=== PATIENT | female | born 1935 | race Caucasian/White ===

== ENCOUNTER 2017-01-25 09:35 | Emergency (ER) | payer MEDICARE ==
[~2017-01-25] VITALS: Ht 157.5 cm; Wt 75.0 kg
[~2017-01-25 09:35] MED LIST: 1-ME1LIQ PO; BUME1TAB PO; CLON-352 PO; METO50TA PO
[2017-01-25 09:44] VITALS: BP 193/88; PULSE 61; RESP 17; TEMP 98.3; O2SAT 96
--- NOTE | 2017-01-25 10:15 | RADRPT ---
EXAM DATE/TIME: 01/25/2017 10:05 [place] COMPARISON: No previous studies available for comparison. INDICATIONS : Right shoulder pain for 4 days. No injury. MEDICAL HISTORY : Cerebrovascular disease. Hypertension. SURGICAL HISTORY : Cholecystectomy. Appendectomy. ENCOUNTER: Initial ACUITY: 4 - 6 days PAIN SCORE: 6/10 LOCATION: Right anterior shoulder. FINDINGS: Limited AP and Y. views of the scapula were obtained and demonstrate diffuse osteopenia. There is nor mal alignment with no acute fracture. The soft tissues are unremarkable. The acromioclavicular and gl enohumeral joints are intact. CONCLUSION: Osteopenia with no underlying bony abnormality. Jeronimo Osborne MD on January 25, 2017 at 10:13 Board Certified Radiologist. This report was verified electronically.
[2017-01-25] MEDS ORDERED: b/p med (11:46)
[2017-01-25] MEDS ORDERED: water pill (11:46)
[2017-01-25] MEDS ORDERED: BACL10TA PO (12:06)
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
[2017-01-25] MEDS ORDERED: DEXAMETHASONE SOD PHOS 4 MG/ML VIAL IM ONE (12:15)
[2017-01-25 12:42] VITALS: BP 157/65; PULSE 60; RESP 18; O2SAT 97
== END 2017-01-25 12:55 | disposition home or self-care (01) ==
LOC: PHED 09:35 → PHEFT 12:55
DX: M25.511 Pain in right shoulder (principal); I10 Essential (primary) hypertension; I48.91 Unspecified atrial fibrillation; Z86.73 Personal history of transient ischemic attack (TIA), and cerebral infarction without residual deficits; Z90.49 Acquired absence of other specified parts of digestive tract; Z79.01 Long term (current) use of anticoagulants
CPT/HCPCS: 73030; 96372; 99284; J1100

== ENCOUNTER 2017-04-22 10:14 | Emergency (ER) | payer MEDICARE ==
[~2017-04-22] VITALS: Ht 157.5 cm; Wt 81.1 kg
[~2017-04-22 10:14] MED LIST changes: -1-ME1LIQ PO; +BACL10TA PO; -BUME1TAB PO; -CLON-352 PO; -METO50TA PO; +b/p med; +water pill
[2017-04-22 10:16] VITALS: BP 193/79; PULSE 83; RESP 16; TEMP 97.8; O2SAT 98
[2017-04-22] MEDS ORDERED: CLON0.1T PO (10:38)
[2017-04-22] MEDS ORDERED: VITA1000 PO (10:38)
[2017-04-22] MEDS ORDERED: ASPI-516 CHEW (10:38)
[2017-04-22] MEDS ORDERED: AMLO10TA2 PO (10:38)
[2017-04-22] MEDS ORDERED: BUME1TAB PO (10:38)
[2017-04-22] MEDS ORDERED: METO50TA PO (10:38)
--- NOTE | 2017-04-22 10:49 | PD ---
HPI Chief Complaint: Skin Problem Time Seen by Provider: 10:32 Travel History International Travel<30 days: No Contact w/Intl Traveler<30days: No Traveled to known affect area: No History of Present Illness HPI 81-year-old female presents the emergency department with contusion with laceration to the right middle anterior christine. This occurred 4 days ago. She did it by hitting a large wooden table while walking. Patient states she was concerned as it didn't seem to be healing, so she thought she should get it checked. She denies significant warmth, purulent drainage, or other signs of infection. Pain is about a 6 out of 10 which she attributes to the bruising. She has been changing the dressing twice daily. She has multiple allergies. PFSH Past Medical History Hx Anticoagulant Therapy: Yes (ASA 81MG ) Arthritis: No Asthma: No Atrial Fibrillation: Yes Autoimmune Disease: No Heart Rhythm Problems: Yes (afib ) Cancer: No Cardiac Catheterization: No Cardiovascular Problems: Yes High Cholesterol: Yes Chemotherapy: No Chest Pain: No Congestive Heart Failure: No COPD: No Cerebrovascular Accident: Yes (DECEMBER AT TIMES FORGETFUL) Diabetes: No Diminished Hearing: No Endocrine: No Gastrointestinal Disorders: No GERD: No Genitourinary: No Headaches: No Hiatal Hernia: No Heparin Induced Thrombocytopen: No Hypertension: Yes Immune Disorder: No Implanted Vascular Access Dvce: No Kidney Stones: No Musculoskeletal: No Neurologic: Yes (stroke 2011 with no deficit, just cannot remember some things) Psychiatric: No Reproductive: No Respiratory: No Integumentary: Yes (R CHEEK) Migraines: No Myocardial Infarction: No Radiation Therapy: No Renal Failure: No Seizures: No Sickle Cell Disease: No Sleep Apnea: No Thyroid Disease: No Ulcer: No Influenza Vaccination: Yes ?: Not Menopausal: Yes : 2 Para: 2 Miscarriage: 0 Past Surgical History Abdominal Surgery: Yes (UMBILICAL HERNIA REPAIR, appendectomy) AICD: No Appendectomy: Yes Arteriovenous Shunt: No Cardiac Surgery: No Cholecystectomy: Yes Coronary Artery Bypass Graft: No Ear Surgery: No Endocrine Surgery: No Eye Surgery: No Genitourinary Surgery: No Gynecologic Surgery: No Insulin Pump: No Joint Replacement: Yes (METAL KNEE REPLACEMENT) Neurologic Surgery: No Oral Surgery: No Pacemaker: No Thoracic Surgery: No Tonsillectomy: Yes Other Surgery: Yes Family History Family Myocardial Infarction: No Social History Alcohol Use: No Tobacco Use: No Substance Use: No Allergies-Medications (Allergen,Severity, Reaction): Coded Allergies: Sulfa (Sulfonamide Antibiotics) (Unverified Allergy, Severe, RASH, 04/22/17 ) aspirin (Unverified Allergy, Severe, HIVES, 04/22/17) chocolate flavor (Unverified Allergy, Severe, itching, 04/22/17) codeine (Unverified Allergy, Severe, SHORT OF BREATH/PIMPLES, 04/22/17) gluten (Unverified Allergy, Severe, gi upset, 04/22/17) metronidazole (Unverified Allergy, Severe, gi upset, 04/22/17) wheat (Unverified Allergy, Severe, CANNOT BREATH, 04/22/17) Yeast (Unverified Adverse Reaction, Severe, NAUSEA/VOMITING, 04/22/17) milk (Unverified Adverse Reaction, Intermediate, DIARRHEA, 04/22/17) soy (Unverified Adverse Reaction, Intermediate, ABDOMINAL CRAMPS, 04/22/17) Uncoded Allergies: SHARK (Allergy, Severe, CANNOT BREATH, 11/14/12) NUTS (Adverse Reaction, Intermediate, DIVERTICULITIS, 11/14/12) Reported Meds & Prescriptions Reported Meds & Active Scripts Active Reported Metoprolol Tartrate 50 Mg Tab 50 Mg PO BID Vitamin D-1000 (Cholecalciferol) 1,000 Unit Tab 2,000 Units PO DAILY Clonidine (Clonidine HCl) 0.1 Mg Tab 0.1 Mg PO Q8HR Bumetanide 1 Mg Tab 1 Mg PO DAILY Aspirin 81 Mg Chew 81 Mg CHEW DAILY Amlodipine (Amlodipine Besylate) 10 Mg Tab 10 Mg PO DAILY Review of Systems Except as stated in HPI: all other systems reviewed are Neg General / Constitutional: No: Fever Eyes: No: Visual changes HENT: No: Headaches Cardiovascular: No: Chest Pain or Discomfort Respiratory: No: Shortness of Breath Gastrointestinal: No: Abdominal Pain Genitourinary: No: Dysuria Musculoskeletal: No: Pain Skin: Positive Lesions (see history of present illness.), No Rash Neurologic: No: Weakness Psychiatric: No: Depression Endocrine: No: Polydipsia Hematologic/Lymphatic: No: Easy Bruising Physical Exam Narrative GENERAL: Patient appears nonacute distress. SKIN: Warm and dry. Patient has open 2 cm horizontal laceration to the anterior right christine with 4 cm diameter ecchymosis surrounding it. Bleeding is currently controlled. There is no sign of erythema, warmth, or bacterial infection. HEAD: Atraumatic. Normocephalic. EYES: Pupils equal and round. No scleral icterus. No injection or drainage. ENT: No nasal bleeding or discharge. Mucous membranes pink and moist. Airways patent. NECK: Trachea midline. Supple and nontender. CARDIOVASCULAR: Regular rate and rhythm. RESPIRATORY: No accessory muscle use. Clear to auscultation. Breath sounds equal bilaterally. MUSCULOSKELETAL: Extremities without clubbing, cyanosis, or edema. No obvious deformities. NEUROLOGICAL: Awake and alert. No obvious cranial nerve deficits. Motor grossly within normal limits. Five out of 5 muscle strength in the arms and legs. Normal speech. PSYCHIATRIC: Appropriate mood and affect; insight and judgment normal. Data Data Last Documented VS Vital Signs Date Time Temp Pulse Resp B/P (MAP) Pulse Ox O2 Delivery O2 Flow Rate FiO2 04/22/17 10:16 97.8 83 16 193/79 (117) 98 Orders Orders Ed Discharge Order (04/22/17 10:49) [facility] Medical Decision Making Medical Screen Exam Complete: Yes Emergency Medical Condition: Yes Differential Diagnosis Right christine contusion. Right christine laceration. Wound check. Narrative Course Closure at this time would not be appropriate. The wound appears clean and not infected. Xeroform gauze, Telfa pad, and Patrice dressing is applied. Wound instructions are reviewed. Patient follow with primary care physician as needed. Diagnosis Primary Impression: Laceration of leg not thigh, left Qualified Codes: S81.812A - Laceration without foreign body, left lower leg, initial encounter Referrals: Primary Care Physician Patient Instructions: General Instructions, Laceration Without Closure (ED) Additional Instructions: Closure at this time would not be appropriate. The wound appears clean and not infected. Xeroform gauze, Telfa pad, and Patrice dressing is applied. Wound instructions are reviewed. Patient follow with primary care physician as needed. Med/Other Pt SpecificInfo: No Meds Exist/No RX given, Wound Care Disposition: DISCHARGE HOME Condition: Stable Franky Hernandez Apr 22, 2017 10:49
== END 2017-04-22 11:10 | disposition home or self-care (01) ==
LOC: PHEFT 10:14
DX: S81.812A Laceration without foreign body, left lower leg, initial encounter (principal); I48.91 Unspecified atrial fibrillation; E78.00 Pure hypercholesterolemia, unspecified; I10 Essential (primary) hypertension; W22.03XA Walked into furniture, initial encounter; Z86.73 Personal history of transient ischemic attack (TIA), and cerebral infarction without residual deficits; Z79.82 Long term (current) use of aspirin
CPT/HCPCS: 99282

== ENCOUNTER 2017-04-26 11:05 | Emergency (ER) | payer MEDICARE ==
[~2017-04-26 11:05] MED LIST changes: +AMLO10TA2 PO; +ASPI-516 CHEW; -BACL10TA PO; +BUME1TAB PO; +CLON0.1T PO; +METO50TA PO; +VITA1000 PO; -b/p med; -water pill
[2017-04-26 11:10] VITALS: BP 174/72; PULSE 85; RESP 20; TEMP 97.6; O2SAT 96
--- NOTE | 2017-04-26 11:43 | PD ---
HPI Chief Complaint: Wound/Suture/Staple Re-Check Time Seen by Provider: 11:32 Travel History International Travel<30 days: No Contact w/Intl Traveler<30days: No Traveled to known affect area: No History of Present Illness HPI This patient complains of a wound on her right christine. She was seen here few days ago for it. She came back today because it's not healed yet. She struck it on a table and opened an area and came in to late to suture. PFSH Past Medical History Hx Anticoagulant Therapy: Yes (ASA 81MG ) Arthritis: No Asthma: No Atrial Fibrillation: Yes Autoimmune Disease: No Heart Rhythm Problems: Yes (afib ) Cancer: No Cardiac Catheterization: No Cardiovascular Problems: Yes High Cholesterol: Yes Chemotherapy: No Chest Pain: No Congestive Heart Failure: No COPD: No Cerebrovascular Accident: Yes (DECEMBER AT TIMES FORGETFUL) Diabetes: No Diminished Hearing: No Endocrine: No Gastrointestinal Disorders: No GERD: No Genitourinary: No Headaches: No Hiatal Hernia: No Heparin Induced Thrombocytopen: No Hypertension: Yes Immune Disorder: No Implanted Vascular Access Dvce: No Kidney Stones: No Musculoskeletal: No Neurologic: Yes (stroke 2011 with no deficit, just cannot remember some things) Psychiatric: No Reproductive: No Respiratory: No Integumentary: Yes (R CHEEK) Migraines: No Myocardial Infarction: No Radiation Therapy: No Renal Failure: No Seizures: No Sickle Cell Disease: No Sleep Apnea: No Thyroid Disease: No Ulcer: No Tetanus Vaccination: > 5 Years Influenza Vaccination: No ?: Not Menopausal: Yes : 2 Para: 2 Miscarriage: 0 Past Surgical History Abdominal Surgery: Yes (UMBILICAL HERNIA REPAIR, appendectomy) AICD: No Appendectomy: Yes Arteriovenous Shunt: No Cardiac Surgery: No Cholecystectomy: Yes Coronary Artery Bypass Graft: No Ear Surgery: No Endocrine Surgery: No Eye Surgery: No Genitourinary Surgery: No Gynecologic Surgery: No Insulin Pump: No Joint Replacement: Yes (METAL KNEE REPLACEMENT) Neurologic Surgery: No Oral Surgery: No Pacemaker: No Thoracic Surgery: No Tonsillectomy: Yes Other Surgery: Yes Social History Alcohol Use: No Tobacco Use: No Substance Use: No Allergies-Medications (Allergen,Severity, Reaction): Coded Allergies: Sulfa (Sulfonamide Antibiotics) (Verified Allergy, Severe, RASH, 04/26/17) aspirin (Verified Allergy, Severe, HIVES, 04/26/17) PT STATES SHE IS ABLE TO TAKE 81MG ASA AND DOES DAILY. chocolate flavor (Verified Allergy, Severe, itching, 04/26/17) codeine (Verified Allergy, Severe, SHORT OF BREATH/PIMPLES, 04/26/17) gluten (Verified Allergy, Severe, gi upset, 04/26/17) metronidazole (Verified Allergy, Severe, gi upset, 04/26/17) wheat (Verified Allergy, Severe, CANNOT BREATH, 04/26/17) Yeast (Verified Adverse Reaction, Severe, NAUSEA/VOMITING, 04/26/17) milk (Verified Adverse Reaction, Intermediate, DIARRHEA, 04/26/17) soy (Verified Adverse Reaction, Intermediate, ABDOMINAL CRAMPS, 04/26/17) Uncoded Allergies: SHARK (Allergy, Severe, CANNOT BREATH, 11/14/12) NUTS (Adverse Reaction, Intermediate, DIVERTICULITIS, 11/14/12) Reported Meds & Prescriptions Reported Meds & Active Scripts Active Reported Metoprolol Tartrate 50 Mg Tab 50 Mg PO BID Vitamin D-1000 (Cholecalciferol) 1,000 Unit Tab 2,000 Units PO DAILY Clonidine (Clonidine HCl) 0.1 Mg Tab 0.1 Mg PO Q8HR Bumetanide 1 Mg Tab 1 Mg PO DAILY Aspirin 81 Mg Chew 81 Mg CHEW DAILY Amlodipine (Amlodipine Besylate) 10 Mg Tab 10 Mg PO DAILY Review of Systems General / Constitutional: No: Fever HENT: No: Headaches Cardiovascular: No: Chest Pain or Discomfort Physical Exam Narrative Psych: Normal mood and affect. Normal insight and judgment. SKIN: Focused skin assessment reveals no rash or ulcers. Skin is warm and dry. Palpation shows no induration or nodules. Right leg: There is a open wound in the mid right tibia that healing by secondary intent. There is a surrounding area of ecchymosis and tenderness. No sign of infection Data Data Last Documented VS Vital Signs Date Time Temp Pulse Resp B/P (MAP) Pulse Ox O2 Delivery O2 Flow Rate FiO2 04/26/17 11:10 97.6 85 20 174/72 (106) 96 MDM Medical Decision Making Medical Screen Exam Complete: Yes Emergency Medical Condition: Yes Medical Record Reviewed: Yes Differential Diagnosis Wound check, dehiscence, cellulitis Narrative Course I have reviewed the patient's electronic medical record. Reviewed his visit from a few days ago Discussed again with the patient that it's too late to close this with sutures tightly. We cleaned it and applied a few Steri-Strips just to give it some added strength but it's not closed tightly Wound care discussed This will need to heal and over time and will take a while Diagnosis Primary Impression: Visit for wound check Additional Instructions: The patient was advised to follow up with their physician and return if they worsen. Med/Other Pt SpecificInfo: Other Disposition: 01 DISCHARGE HOME Condition: Stable Jakob Laura MD Apr 26, 2017 11:43
== END 2017-04-26 12:14 | disposition home or self-care (01) ==
LOC: PHED 11:05
DX: S81.801D Unspecified open wound, right lower leg, subsequent encounter (principal); W22.03XD Walked into furniture, subsequent encounter
CPT/HCPCS: 99281

== ENCOUNTER → 2017-09-08 | Day surgery (SDC) | payer MEDICARE ==
[~2017-09-08] VITALS: Ht 180.3 cm; Wt 79.0 kg
[~2017-09-08] MED LIST changes: +ACET-822 PO; +CHLORHEXIDINE GLUCONATE 2 % 1 PACK (2 CLOTHS) TOPICAL PRN; +HYALURONIDASE/LIDOCAINE/BUPIVACAINE 5 ML SYR LEFT EYE ONE; +LACTATED RINGER'S 1000 ML IV PRN; +LIDOCAINE HCL 1% PF 5 ML AMPULE ONE; +METOPROLOL TARTRATE 25 MG TAB PO PRN; +POVIDONE IODINE 5% (ANTISEPSIS KIT) 4 APPLICATIONS EACH NARE PRN; +PROPARACAINE HCL 0.5% OPHT SOLN 15 ML BTL LEFT EYE ONE; +PROPOFOL 200 MG/20 ML AMP ONE; +PROT40TA PO; +SODIUM CHLORID 0.9% 500 ML IV PRN; +TOBRAMYCIN/DEXAMETHASONE OPTH OINT 3.5 GM TUBE ONE
[2017-09-08] MEDS: TROPICAMIDE 1% OPHT SOLN 15 ML BTL LEFT EYE SCH ×4 (08:10→08:25)
[2017-09-08] MEDS: PHENYLEPHRINE HCL 10% OPTH SOLN 5 ML BTL LEFT EYE SCH ×4 (08:10→08:25)
[2017-09-08] MEDS: CYCLOPENTOLATE HCL 1% OPHT SOLN 2 ML BTL LEFT EYE SCH ×4 (08:10→08:25)
[2017-09-08] MEDS: FLURBIPROFEN 0.03% OPHT SOLN 2.5 ML BTL LEFT EYE SCH ×4 (08:10→08:25)
[2017-09-08 08:20] VITALS: PULSE 73
[2017-09-08 08:40] VITALS: PULSE 67
[2017-09-08 09:45] VITALS: TEMP 97.9
[2017-09-08 10:05] VITALS: BP 164/58; PULSE 62; RESP 16; O2SAT 99
--- NOTE | 2017-09-08 10:38 | MP ---
cc: Janes Sena MD DATE OF OPERATION: 09/08/2017 [facility] #[id number] PREOPERATIVE DIAGNOSIS: Visually significant cataract, left eye. POSTOPERATIVE DIAGNOSIS: Visually significant cataract, left eye. OPERATION: Phacoemulsification with posterior chamber lens implantation, left eye. SURGEON: Janes Sena MD ANESTHESIA: Retrobulbar with MAC. COMPLICATIONS: None. PROCEDURE: After informed consent was obtained, the patient was brought into the operative suite and placed on appropriate monitors by the Anesthesia Service. The patient had received a prior retrobulbar injection of local anesthetic by the Anesthesia Service in the holding area. The patient's operative eye was then prepped and draped in the usual sterile fashion. A wire lid speculum was placed. A paracentesis incision was made in the peripheral cornea with a 1 mm zachery keratome. The anterior chamber was filled with viscoelastic. The anterior chamber was then entered through a stepped, clear corneal incision using a sharp 3 mm zachery keratome. A circular tear capsulorrhexis was then made with a bent needle cystitome. Following hydrodissection of the lens nucleus with balanced saline, phaco-emulsification of the nucleus was performed using a modified chopping technique. The remaining cortex was removed with irrigation/aspiration. The prior two procedures were both performed using the handpieces of the [employer] phaco unit. The capsular bag was then filled with viscoelastic. The intraocular lens was then injected into the capsular bag and positioned. The type of intraocular lens and its power can be found elsewhere in this chart. The remaining viscoelastic was then removed from the anterior chamber with the IA handpiece. The anterior chamber was reformed with balanced saline. The wound was then closed securely with stromal hydration. It was found to be watertight to an intraocular pressure of at least 30 mmHg by palpation. A small amount of balanced salt solution was then removed through the paracentesis site and the intraocular pressure at the end of the case was approximately 20 by palpation. All drapes were then removed. TobraDex ointment was then placed in the eye, which was closed beneath a semi-pressure patch dressing. The patient tolerated this procedure well and left the operating room awake and alert. The patient is to follow-up in my office in the morning. PREOPERATIVE DIAGNOSIS:. with the left eye. MD ASHLYN Jack , 10:26 AM , 10:37 AM
== END | disposition home or self-care (01) ==
LOC: PHSDC 07:11 → EDSTATUS 10:30
PROVIDERS: ATTEND Optometrist Occupational Vision
DX: H25.12 Age-related nuclear cataract, left eye (principal)
CPT/HCPCS: 00142; 66984; J7040; V2632

== ENCOUNTER → 2017-10-20 | Day surgery (SDC) | payer MEDICARE ==
[~2017-10-20] VITALS: Ht 154.9 cm; Wt 79.5 kg
[~2017-10-20] MED LIST changes: +EPINEPHrine HCL PF/SF (1:1000) 1 MG/ML AMP I-OCULAR ONE; -HYALURONIDASE/LIDOCAINE/BUPIVACAINE 5 ML SYR LEFT EYE ONE; +HYALURONIDASE/LIDOCAINE/BUPIVACAINE 5 ML SYR RIGHT EYE ONE; -LIDOCAINE HCL 1% PF 5 ML AMPULE ONE; -PROPARACAINE HCL 0.5% OPHT SOLN 15 ML BTL LEFT EYE ONE; +PROPARACAINE HCL 0.5% OPHT SOLN 15 ML BTL RIGHT EYE ONE
[2017-10-20 08:24] VITALS: PULSE 59
[2017-10-20] MEDS: TROPICAMIDE 1% OPHT SOLN 15 ML BTL RIGHT EYE SCH ×4 (08:27→08:42)
[2017-10-20] MEDS: FLURBIPROFEN 0.03% OPHT SOLN 2.5 ML BTL RIGHT EYE SCH ×4 (08:27→08:42)
[2017-10-20] MEDS: CYCLOPENTOLATE HCL 1% OPHT SOLN 2 ML BTL RIGHT EYE SCH ×4 (08:27→08:42)
[2017-10-20] MEDS: PHENYLEPHRINE HCL 10% OPTH SOLN 5 ML BTL RIGHT EYE SCH ×4 (08:27→08:42)
[2017-10-20 08:47] VITALS: PULSE 62
[2017-10-20 09:43] VITALS: TEMP 97.9
[2017-10-20 09:56] VITALS: BP 156/63; PULSE 57; RESP 16; O2SAT 99
--- NOTE | 2017-10-20 11:14 | MP ---
cc: Janes Sena MD DATE OF OPERATION: 10/20/2017 [facility] # [id number] PREOPERATIVE DIAGNOSIS: Visually significant cataract right eye. POSTOPERATIVE DIAGNOSIS: Visually significant cataract right eye. OPERATION: Phacoemulsification with posterior chamber lens implantation, right eye. SURGEON: Janes Sena MD ANESTHESIA: Retrobulbar with MAC. COMPLICATIONS: None. PROCEDURE: After informed consent was obtained, the patient was brought into the operative suite and placed on appropriate monitors by the Anesthesia Service. The patient had received a prior retrobulbar injection of local anesthetic by the Anesthesia Service in the holding area. The patient's operative eye was then prepped and draped in the usual sterile fashion. A wire lid speculum was placed. A paracentesis incision was made in the peripheral cornea with a 1 mm zachery keratome. The anterior chamber was filled with viscoelastic. The anterior chamber was then entered through a stepped, clear corneal incision using a sharp 3 mm zachery keratome. A circular tear capsulorrhexis was then made with a bent needle cystitome. Following hydrodissection of the lens nucleus with balanced saline, phaco-emulsification of the nucleus was performed using a modified chopping technique. The remaining cortex was removed with irrigation/aspiration. The prior two procedures were both performed using the handpieces of the [employer] phaco unit. The capsular bag was then filled with viscoelastic. The intraocular lens was then injected into the capsular bag and positioned. The type of intraocular lens and its power can be found elsewhere in this chart. The remaining viscoelastic was then removed from the anterior chamber with the IA handpiece. The anterior chamber was reformed with balanced saline. The wound was then closed securely with stromal hydration. It was found to be watertight to an intraocular pressure of at least 30 mmHg by palpation. A small amount of balanced salt solution was then removed through the paracentesis site and the intraocular pressure at the end of the case was approximately 20 by palpation. All drapes were then removed. TobraDex ointment was then placed in the eye, which was closed beneath a semi-pressure patch dressing. The patient tolerated this procedure well and left the operating room awake and alert. The patient is to follow-up in my office in the morning. MD HAZEL Jack , 10:26 AM , 11:13 AM
== END | disposition home or self-care (01) ==
LOC: PHSDC 07:14 → EDSTATUS 10:30
PROVIDERS: ATTEND Optometrist Occupational Vision
DX: H25.11 Age-related nuclear cataract, right eye (principal)
CPT/HCPCS: 00142; 66984; J0171; J7040; V2632

== ENCOUNTER 2018-04-20 19:49 | Observation (INO) ==
--- NOTE | 2018-04-20 20:07 | ED ---
HPI General Chief complaint: Stroke Alert Stated complaint: stroke Time Seen by Provider: 04/20/18 19:55 Source: EMS Mode of arrival: EMS Limitations: altered mental status History of Present Illness HPI narrative: 82yo F with HTN and gastritis was brought in as stroke alert. As per EVAC, pt started repeating herself and not acting normal about 1.5 hours ago. Then about half an hour ago, her family went to check on her and found her on the floor and thinks that she rolled off her bed. Fire was there first and called stroke alert because they said she had right facial droop and weakness on her right side. EVAC said she has been altered and moving all extremities. They do not appreciate right facial droop. Pt states her name but is not answer my questions or following commands. No family member here. Related Data Home Medications Medication Instructions Recorded Confirmed amlodipine 10 mg PO DAILY 04/20/18 04/20/18 aspirin [Aspirin Low Dose] 81 mg PO DIRECTED 04/20/18 04/20/18 atorvastatin 20 mg PO DAILY 04/20/18 04/20/18 bumetanide 0.5 mg PO DAILY 04/20/18 04/20/18 clonidine HCl 0.1 mg PO TID 04/20/18 04/20/18 Allergies Allergy/AdvReac Type Severity Reaction Status Date / Time chocolate flavor Allergy Severe itching Verified 04/20/18 19:56 codeine Allergy Severe SHORT OF Verified 04/20/18 19:56 BREATH/PIMPLES gluten Allergy Severe gi upset Verified 04/20/18 19:56 metronidazole Allergy Severe gi upset Verified 04/20/18 19:56 Sulfa (Sulfonamide Allergy Severe RASH Verified 04/20/18 19:56 Antibiotics) wheat Allergy Severe CANNOT Verified 04/20/18 19:56 BREATH aspirin AdvReac Severe "MAKES ME Verified 04/20/18 19:56 SLEEPY" WITH LARGE DOSES Yeast AdvReac Severe NAUSEA/VOMI Verified 04/20/18 19:56 TING milk AdvReac Intermediate DIARRHEA Verified 04/20/18 19:56 soy AdvReac Intermediate ABDOMINAL Verified 04/20/18 19:56 CRAMPS SHARK Allergy Severe CANNOT Uncoded 12/23/07 03:08 BREATH NUTS AdvReac Intermediate DIVERTICULI Uncoded 11/14/12 03:08 TIS Review of Systems ROS Unobtainable ROS Unobtainable: unobtainable due to mental status [facility] Social History Social History Substance History: No History of Abuse Second Hand Smoke Exposure: No Smoking Status: Never smoker How Often Do You Have a Drink Containing Alcohol: Never Recent Travel in [facility] within the Last 8 Weeks: No Recent Out of Country Travel within the Last 8 Weeks: No Exam Narrative Exam Narrative: GENERAL: 82yo F in mild distress. SKIN: Focused skin assessment warm/dry. HEAD: Atraumatic. Normocephalic. EYES: Pt closes her eyelid shut every time I try to open her eyes. ENT: No nasal bleeding or discharge. Mucous membranes pink and moist. NECK: Trachea midline. No JVD. CARDIOVASCULAR: Regular rate and rhythm. No murmur appreciated. RESPIRATORY: No accessory muscle use. Clear to auscultation. Breath sounds equal bilaterally. GASTROINTESTINAL: Abdomen soft, non-tender, nondistended. MUSCULOSKELETAL: No obvious deformities. No clubbing. No cyanosis. No edema. NEUROLOGICAL: Awake and opens eyes spontaneously. GCS 12 [id number]. Course Initial Documented Vital Signs Pulse Oximetry 95 04/20/18 19:50 Last Documented Vital Signs Temperature 98.6 F 04/24/18 08:00 Pulse Rate 76 04/24/18 08:00 Respiratory Rate 17 04/24/18 04:00 Blood Pressure 203/79 H 04/24/18 08:00 Pulse Oximetry 94 L 04/24/18 08:00 Critical Care Time Critical Care Time: Yes Total Critical Care Time: 35 Attestation: Aggregate critical care time was 35 minutes. Time to perform other separately billable procedures was not included in the critical care time. My time did not include minutes spent treating any other patients simultaneously or on activities that did not directly contribute to the patient's treatment. The services I provided to this patient were to treat and/or prevent clinically significant deterioration that could result in: cardiovascular collapse or . I provided critical care services requiring my management, as noted below: Chart data review, documentation time, medication orders and management, vital sign assessments/reviewing monitor data, ordering and reviewing lab tests, ordering and interpreting/reviewing x-rays and diagnostic studies, care of the patient and discussion of the patient with the admitting physicians. Medical Decision Making MDM Narrative Medical decision making narrative: 82yo F was brought in as stroke alert. EVAC said Fire arrived first and they said she had right facial droop and right sided weakness. However, when they arrived, she was moving all extremities but not really following command. Unable to determine sensation, visual acuity and obtain an accurate NIH stroke scale since pt not answering some questions or following commands. Blood glucose was 201. Neurologist Dr. Bolaños evaluated the patient using tele stroke when she returned from CT scan and she is much improved. Currently following commands so he said it could be TIA but no TPA since symptoms rapidly improving. Recommends aspirin and tomorrow, we can obtain MRI. Labs reviewed, no leukocytosis. H/H normal. Mild hypokalemia at 3.4. Troponin negative at 0.03. TSH normal. CT brain showed no bleed or acute intracranial abnormality. 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 CTA head showed no occlusive disease. CTA neck showed no significant occlusive disease within the neck. There is atherosclerosis of the carotid bifurcations. Pt reevaluated at bedside and is now following commands. No drift on all extremities. Sensation intact. CXR showed minimal basilar atelectasis. No effusion or pneumothorax. Cardiomegaly. Pt reevaluated at bedside and is now fully with it and speaking in clear sentences. UA showed negative leukocyte or nitrate. Will admit for TIA work up. Discussed with Dr. Michelle and accepted to his service. Medical Screen Exam Complete: Yes Emergency Medical Condition: Yes Differential Diagnosis Differential Diagnosis: AMS secondary to ICH vs. CVA vs. sepsis vs. delirium vs. dementia Lab Data Result diagrams: 04/21/18 04:40 04/23/18 05:39 Lab Results 04/20/18 04/20/18 04/20/18 Range/Units 19:50 19:50 19:50 CBC w Diff Auto diff final WBC 8.1 (4.0-11.0) th/mm3 RBC 4.30 (4.00-5.30) mil/mm3 Hgb 12.6 (11.6-15.3) gm/dL Hct 37.4 (35.0-46.0) % MCV 86.9 (80.0-100.0) fL MCH 29.3 (27.0-34.0) pg MCHC 33.8 (32.0-36.0) % RDW 13.9 (11.6-17.2) % Plt Count 221 (150-450) th/mm3 MPV 7.8 (7.0-11.0) fL Neut % (Auto) 80.8 H (16.0-70.0) % Lymph % (Auto) 16.1 (9.0-44.0) % [place]itt % (Auto) 2.2 (0.0-8.0) % Eos % (Auto) 0.4 (0.0-4.0) % Baso % (Auto) 0.5 (0.0-2.0) % Neut # (Auto) 6.6 (1.8-7.7) th/mm3 Lymph # (Auto) 1.3 (1.0-4.8) th/mm3 [place] # (Auto) 0.2 (0.0-0.9) th/mm3 Eos # (Auto) 0.0 (0.0-0.4) th/mm3 Baso # (Auto) 0.0 (0.0-0.2) th/mm3 WBC Differential . Differential Comment . PT 10.8 (9.8-11.6) sec INR 1.1 Ratio APTT 21.4 L (23.4-31.7) sec Sodium 138 (136-145) meq/L Potassium 3.4 L (3.5-5.1) meq/L Chloride 103 (98-107) meq/L Carbon Dioxide 22.7 (21.0-32.0) meq/L Anion Gap 12 (5-15) meq/L BUN 14 (7-18) mg/dL Creatinine 1.00 (0.50-1.00) mg/dL Estimated GFR 53 L (>89) mL/min POC Glucose (68-110) mg/dl Random Glucose 192 H (74-106) mg/dL Calcium 8.4 L (8.5-10.1) mg/dL Magnesium (1.5-2.5) mg/dL Ammonia (11-32) mcmol/L Total Creatine Kinase 78 (26-192) U/L Troponin I 0.03 (0.02-0.05) ng/mL Triglycerides (42-150) mg/dL Cholesterol (120-200) mg/dL LDL Cholesterol, Calc (0-99) mg/dL HDL Cholesterol (40.0-60.0) mg/dL Cholesterol/HDL Ratio Ratio TSH (0.358-3.740) uIU/mL Urine Color (Yellw/Straw) Urine Clarity (Clear) Urine pH (5.0-8.5) Ur Specific [place] (1.002-1.035) Urine Protein (Neg-Trace) mg/dL Urine Glucose (UA) (Negative) mg/dL Urine Ketones (Negative) mg/dL Urine Occult Blood (Negative) Urine Nitrate (Negative) Urine Bilirubin (Negative) Urine Urobilinogen (Less than 2) mg/dL Ur Leukocyte Esterase (Negative) Micro UA Comment Ur Microscopic Review Urine Culture Comments Urine Collection Time hours Urine Opiates Screen (Neg) Ur Barbiturates Screen (Neg) Ur Amphetamines Screen (Neg) U Benzodiazepines Scrn (Neg) Urine Cocaine Screen (Neg) U Cannabinoids Screen (Neg) Blood Type Antibody Screen 04/20/18 04/20/18 04/20/18 Range/Units 19:50 19:50 19:58 CBC w Diff WBC (4.0-11.0) th/mm3 RBC (4.00-5.30) mil/mm3 Hgb (11.6-15.3) gm/dL Hct (35.0-46.0) % MCV (80.0-100.0) fL MCH (27.0-34.0) pg MCHC (32.0-36.0) % RDW (11.6-17.2) % Plt Count (150-450) th/mm3 MPV (7.0-11.0) fL Neut % (Auto) (16.0-70.0) % Lymph % (Auto) (9.0-44.0) % Dewitt % (Auto) (0.0-8.0) % Eos % (Auto) (0.0-4.0) % Baso % (Auto) (0.0-2.0) % Neut # (Auto) (1.8-7.7) th/mm3 Lymph # (Auto) (1.0-4.8) th/mm3 [place]itt # (Auto) (0.0-0.9) th/mm3 Eos # (Auto) (0.0-0.4) th/mm3 Baso # (Auto) (0.0-0.2) th/mm3 WBC Differential Differential Comment PT (9.8-11.6) sec INR Ratio APTT (23.4-31.7) sec Sodium (136-145) meq/L Potassium (3.5-5.1) meq/L Chloride (98-107) meq/L Carbon Dioxide (21.0-32.0) meq/L Anion Gap (5-15) meq/L BUN (7-18) mg/dL Creatinine (0.50-1.00) mg/dL Estimated GFR (>89) mL/min POC Glucose 201 H (68-110) mg/dl Random Glucose (74-106) mg/dL Calcium (8.5-10.1) mg/dL Magnesium (1.5-2.5) mg/dL Ammonia (11-32) mcmol/L Total Creatine Kinase (26-192) U/L Troponin I (0.02-0.05) ng/mL Triglycerides (42-150) mg/dL Cholesterol (120-200) mg/dL LDL Cholesterol, Calc (0-99) mg/dL HDL Cholesterol (40.0-60.0) mg/dL Cholesterol/HDL Ratio Ratio TSH 1.980 (0.358-3.740) uIU/mL Urine Color (Yellw/Straw) Urine Clarity (Clear) Urine pH (5.0-8.5) Ur Specific [place] (1.002-1.035) Urine Protein (Neg-Trace) mg/dL Urine Glucose (UA) (Negative) mg/dL Urine Ketones (Negative) mg/dL Urine Occult Blood (Negative) Urine Nitrate (Negative) Urine Bilirubin (Negative) Urine Urobilinogen (Less than 2) mg/dL Ur Leukocyte Esterase (Negative) Micro UA Comment Ur Microscopic Review Urine Culture Comments Urine Collection Time hours Urine Opiates Screen (Neg) Ur Barbiturates Screen (Neg) Ur Amphetamines Screen (Neg) U Benzodiazepines Scrn (Neg) Urine Cocaine Screen (Neg) U Cannabinoids Screen (Neg) Blood Type O Positive Antibody Screen Negative 04/20/18 04/20/18 04/20/18 Range/Units 20:40 20:54 20:54 CBC w Diff WBC (4.0-11.0) th/mm3 RBC (4.00-5.30) mil/mm3 Hgb (11.6-15.3) gm/dL Hct (35.0-46.0) % MCV (80.0-100.0) fL MCH (27.0-34.0) pg MCHC (32.0-36.0) % RDW (11.6-17.2) % Plt Count (150-450) th/mm3 MPV (7.0-11.0) fL Neut % (Auto) (16.0-70.0) % Lymph % (Auto) (9.0-44.0) % Dewitt % (Auto) (0.0-8.0) % Eos % (Auto) (0.0-4.0) % Baso % (Auto) (0.0-2.0) % Neut # (Auto) (1.8-7.7) th/mm3 Lymph # (Auto) (1.0-4.8) th/mm3 Dewitt # (Auto) (0.0-0.9) th/mm3 Eos # (Auto) (0.0-0.4) th/mm3 Baso # (Auto) (0.0-0.2) th/mm3 WBC Differential Differential Comment PT (9.8-11.6) sec INR Ratio APTT (23.4-31.7) sec Sodium (136-145) meq/L Potassium (3.5-5.1) meq/L Chloride (98-107) meq/L Carbon Dioxide (21.0-32.0) meq/L Anion Gap (5-15) meq/L BUN (7-18) mg/dL Creatinine (0.50-1.00) mg/dL Estimated GFR (>89) mL/min POC Glucose (68-110) mg/dl Random Glucose (74-106) mg/dL Calcium (8.5-10.1) mg/dL Magnesium (1.5-2.5) mg/dL Ammonia Less than 10 L (11-32) mcmol/L Total Creatine Kinase (26-192) U/L Troponin I (0.02-0.05) ng/mL Triglycerides (42-150) mg/dL Cholesterol (120-200) mg/dL LDL Cholesterol, Calc (0-99) mg/dL HDL Cholesterol (40.0-60.0) mg/dL Cholesterol/HDL Ratio Ratio TSH (0.358-3.740) uIU/mL Urine Color Yellow (Yellw/Straw) Urine Clarity Clear (Clear) Urine pH 7.0 (5.0-8.5) Ur Specific [place] 1.015 (1.002-1.035) Urine Protein Trace (Neg-Trace) mg/dL Urine Glucose (UA) 500 H (Negative) mg/dL Urine Ketones Trace H (Negative) mg/dL Urine Occult Blood Small H (Negative) Urine Nitrate Negative (Negative) Urine Bilirubin Negative (Negative) Urine Urobilinogen 0.2 (Less than 2) mg/dL Ur Leukocyte Esterase Negative (Negative) Micro UA Comment Culture not ind Ur Microscopic Review Microscopic reviewed Urine Culture Comments Culture not ind Urine Collection Time 2054 hours Urine Opiates Screen Neg (Neg) Ur Barbiturates Screen Neg (Neg) Ur Amphetamines Screen Neg (Neg) U Benzodiazepines Scrn Neg (Neg) Urine Cocaine Screen Neg (Neg) U Cannabinoids Screen Neg (Neg) Blood Type Antibody Screen 04/21/18 04/21/18 04/21/18 Range/Units 01:45 04:40 04:40 CBC w Diff Auto diff final WBC 6.8 (4.0-11.0) th/mm3 RBC 3.94 L (4.00-5.30) mil/mm3 Hgb 11.1 L (11.6-15.3) gm/dL Hct 33.8 L (35.0-46.0) % MCV 85.7 (80.0-100.0) fL MCH 28.1 (27.0-34.0) pg MCHC 32.8 (32.0-36.0) % RDW 14.2 (11.6-17.2) % Plt Count 203 (150-450) th/mm3 MPV 7.9 (7.0-11.0) fL Neut % (Auto) 67.6 (16.0-70.0) % Lymph % (Auto) 22.8 (9.0-44.0) % Dewitt % (Auto) 8.3 H (0.0-8.0) % Eos % (Auto) 0.8 (0.0-4.0) % Baso % (Auto) 0.5 (0.0-2.0) % Neut # (Auto) 4.5 (1.8-7.7) th/mm3 Lymph # (Auto) 1.6 (1.0-4.8) th/mm3 [place] # (Auto) 0.6 (0.0-0.9) th/mm3 Eos # (Auto) 0.1 (0.0-0.4) th/mm3 Baso # (Auto) 0.0 (0.0-0.2) th/mm3 WBC Differential . Differential Comment . PT (9.8-11.6) sec INR Ratio APTT (23.4-31.7) sec Sodium 142 (136-145) meq/L Potassium 3.2 L (3.5-5.1) meq/L Chloride 108 H (98-107) meq/L Carbon Dioxide 26.8 (21.0-32.0) meq/L Anion Gap 7 (5-15) meq/L BUN 10 (7-18) mg/dL Creatinine 0.78 (0.50-1.00) mg/dL Estimated GFR 70 L (>89) mL/min POC Glucose (68-110) mg/dl Random Glucose 89 D (74-106) mg/dL Calcium 7.9 L (8.5-10.1) mg/dL Magnesium (1.5-2.5) mg/dL Ammonia (11-32) mcmol/L Total Creatine Kinase (26-192) U/L Troponin I 0.11 H 0.11 H (0.02-0.05) ng/mL Triglycerides 61 (42-150) mg/dL Cholesterol 152 (120-200) mg/dL LDL Cholesterol, Calc 87 (0-99) mg/dL HDL Cholesterol 53.1 (40.0-60.0) mg/dL Cholesterol/HDL Ratio 2.86 Ratio TSH (0.358-3.740) uIU/mL Urine Color (Yellw/Straw) Urine Clarity (Clear) Urine pH (5.0-8.5) Ur Specific [place] (1.002-1.035) Urine Protein (Neg-Trace) mg/dL Urine Glucose (UA) (Negative) mg/dL Urine Ketones (Negative) mg/dL Urine Occult Blood (Negative) Urine Nitrate (Negative) Urine Bilirubin (Negative) Urine Urobilinogen (Less than 2) mg/dL Ur Leukocyte Esterase (Negative) Micro UA Comment Ur Microscopic Review Urine Culture Comments Urine Collection Time hours Urine Opiates Screen (Neg) Ur Barbiturates Screen (Neg) Ur Amphetamines Screen (Neg) U Benzodiazepines Scrn (Neg) Urine Cocaine Screen (Neg) U Cannabinoids Screen (Neg) Blood Type Antibody Screen 04/21/18 04/22/18 04/23/18 Range/Units 08:37 00:12 05:39 CBC w Diff WBC (4.0-11.0) th/mm3 RBC (4.00-5.30) mil/mm3 Hgb (11.6-15.3) gm/dL Hct (35.0-46.0) % MCV (80.0-100.0) fL MCH (27.0-34.0) pg MCHC (32.0-36.0) % RDW (11.6-17.2) % Plt Count (150-450) th/mm3 MPV (7.0-11.0) fL Neut % (Auto) (16.0-70.0) % Lymph % (Auto) (9.0-44.0) % [place] % (Auto) (0.0-8.0) % Eos % (Auto) (0.0-4.0) % Baso % (Auto) (0.0-2.0) % Neut # (Auto) (1.8-7.7) th/mm3 Lymph # (Auto) (1.0-4.8) th/mm3 [place] # (Auto) (0.0-0.9) th/mm3 Eos # (Auto) (0.0-0.4) th/mm3 Baso # (Auto) (0.0-0.2) th/mm3 WBC Differential Differential Comment PT (9.8-11.6) sec INR Ratio APTT (23.4-31.7) sec Sodium 142 (136-145) meq/L Potassium 3.5 (3.5-5.1) meq/L Chloride 109 H (98-107) meq/L Carbon Dioxide 23.3 (21.0-32.0) meq/L Anion Gap 10 (5-15) meq/L BUN 10 (7-18) mg/dL Creatinine 0.66 (0.50-1.00) mg/dL Estimated GFR 85 L (>89) mL/min POC Glucose 106 98 (68-110) mg/dl Random Glucose 97 (74-106) mg/dL Calcium 8.2 L (8.5-10.1) mg/dL Magnesium 2.0 (1.5-2.5) mg/dL Ammonia (11-32) mcmol/L Total Creatine Kinase (26-192) U/L Troponin I (0.02-0.05) ng/mL Triglycerides (42-150) mg/dL Cholesterol (120-200) mg/dL LDL Cholesterol, Calc (0-99) mg/dL HDL Cholesterol (40.0-60.0) mg/dL Cholesterol/HDL Ratio Ratio TSH (0.358-3.740) uIU/mL Urine Color (Yellw/Straw) Urine Clarity (Clear) Urine pH (5.0-8.5) Ur Specific [place] (1.002-1.035) Urine Protein (Neg-Trace) mg/dL Urine Glucose (UA) (Negative) mg/dL Urine Ketones (Negative) mg/dL Urine Occult Blood (Negative) Urine Nitrate (Negative) Urine Bilirubin (Negative) Urine Urobilinogen (Less than 2) mg/dL Ur Leukocyte Esterase (Negative) Micro UA Comment Ur Microscopic Review Urine Culture Comments Urine Collection Time hours Urine Opiates Screen (Neg) Ur Barbiturates Screen (Neg) Ur Amphetamines Screen (Neg) U Benzodiazepines Scrn (Neg) Urine Cocaine Screen (Neg) U Cannabinoids Screen (Neg) Blood Type Antibody Screen Imaging Data Radiologist's impression: Chest X-Ray 04/20/18 19:55 CONCLUSION: Minimal basilar atelectasis. No effusion or pneumothorax. Cardiomegaly. Head CT 04/20/18 19:55 CONCLUSION: 1. No bleed or other acute intracranial abnormality. 2. 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 Report was called by [Dr. Reyes to Dr. Briscoe at 8:13 PM ] Head CTA 04/20/18 19:55 CONCLUSION: 1. No occlusive disease demonstrated. 2. Bilateral relatively large thyroid nodules. Report was called by [ ] Neck CTA 04/20/18 19:55 CONCLUSION: No significant occlusive disease within the neck. There is atherosclerosis of the carotid bifurcations; 30% or less in short segment stenosis of the proximal left internal carotid artery. Head MRI 04/21/18 07:14 . CONCLUSION: 1. Marked periventricular white matter changes with old lacunar infarct basal ganglia right side. 2. Subtle restricted diffusion posterior limb internal capsule left side that could be subacute ischemic changes. 3. There is no parenchymal hemorrhage. Head CT 04/22/18 00:32 CONCLUSION: 1. No acute findings. Report called to Dr. Sergey Bolaños at 12:52 AM on April 22, 2018. Head MRI 04/23/18 00:00 CONCLUSION: 1. No acute abnormality is seen. 2. Increased signal within the cerebral white matter likely from small vessel ischemic change. 3. Areas of encephalomalacia at the left parietal and right external capsule regions. Head MRA 04/23/18 00:00 CONCLUSION: Negative MRA of the intracranial circulation. ECG Data EKG Prior to Arrival: No Attestation: I personally reviewed and interpreted this ECG as follows: Interpretation: Sinus tachycardia at 101bpm. Normal axis. ME interval 166ms. Diffuse ST depressions. PVCs. No significant ST elevation. Discharge Plan Discharge Disposition Patient Disposition: ED Admit(ED Internal Use Only) Discharge Order Discharge Orders: ED Use Only Admit Order (Routine); Ordered 04/20/18 Ordered By: Kamini Briscoe Discharge Details Diagnosis: Brain TIA Physicians Team ED Provider: Kamini Briscoe Primary Care Provider: UNKNOWN, Attending Provider: Anoop Mancuso Other Providers: Camron Weiner John E Status ED Status: Left Department Discharge Information Discharge Date/Time: 04/21/18 00:45
[2018-04-20 20:09] LABS: Baso % (Auto) 0.5 % (0.0-2.0); Eos % (Auto) 0.4 % (0.0-4.0); Hematocrit 37.4 % (35.0-46.0); Hemoglobin 12.6 gm/dL (11.6-15.3); Lymph # (Auto) 1.3 th/mm3 (1.0-4.8); Lymph % (Auto) 16.1 % (9.0-44.0); Mean Corpuscular HGB Conc 33.8 % (32.0-36.0); Mean Corpuscular Hemoglobin 29.3 pg (27.0-34.0); Mean Corpuscular Volume 86.9 fL (80.0-100.0); Mean Platelet Volume 7.8 fL (7.0-11.0); Mono # (Auto) 0.2 th/mm3 (0.0-0.9); Mono % (Auto) 2.2 % (0.0-8.0); Neut # (Auto) 6.6 th/mm3 (1.8-7.7); Neut % (Auto) 80.8 % (16.0-70.0); Platelet Count 221 th/mm3 (150-450); Red Cell Distribution Width 13.9 % (11.6-17.2); White Blood Count 8.1 th/mm3 (4.0-11.0)
--- NOTE | 2018-04-20 20:17 | CT ---
EXAM DATE: 04/20/2018 8:11 PM EST AGE/SEX: 82 years / Female INDICATIONS: Left sided weakness. CLINICAL DATA: This is the patient's initial encounter. Patient reports that signs and symptoms have been present for 1 day and indicates a pain score of Nonresponsive. MEDICAL/SURGICAL HISTORY: Non-responsive. Non-responsive. RADIATION DOSE: 63.12 CTDI (mGy) COMPARISON: [facility] [place]RAIN [place]/O CONTRAST, 12/15/2011. . TECHNIQUE: CT of the head without contrast. Using automated exposure control and adjustment of the mA and/or kV according to patient size, radiation dose was kept as low as reasonably achievable to ob tain optimal diagnostic quality images. DICOM format image data is available electronically for revi ew and comparison. FINDINGS: Cerebrum: The ventricles are normal for age. No evidence of midline shift, mass lesion, hemorrhage or acute infarction. No extraaxial fluid collections are seen. Old white matter infarcts are seen of the right frontal and left parietal lobes. Posterior Fossa: The cerebellum and brainstem are intact. The 4th ventricle is midline. The cerebe llopontine angle is unremarkable. Extracranial: The visualized portion of the orbits is intact. Skull: The calvaria is intact. No evidence of skull fracture. CONCLUSION: 1. No bleed or other acute intracranial abnormality. 2. 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 Report was called by [Dr. Reyes to Dr. Briscoe at 8:13 PM ] Electronically signed by: Micheal Reyes MD 04/20/2018 8:16 PM EST
[2018-04-20 20:19] LABS: Potassium 3.4 meq/L (3.5-5.1)
[2018-04-20 20:21] LABS: Calcium 8.4 mg/dL (8.5-10.1)
[2018-04-20 20:22] LABS: Carbon Dioxide 22.7 meq/L (21.0-32.0)
[2018-04-20 20:24] LABS: Activated Partial Thrombo Time 21.4 sec (23.4-31.7); INR 1.1 Ratio; Prothrombin Time 10.8 sec (9.8-11.6)
[2018-04-20 20:30] LABS: Troponin I 0.03 ng/mL (0.02-0.05)
--- NOTE | 2018-04-20 20:37 | CT ---
EXAM DATE: 04/20/2018 8:29 PM EST AGE/SEX: 82 years / Female INDICATIONS: Left sided weakness. CLINICAL DATA: This is the patient's initial encounter. Patient reports that signs and symptoms have been present for 1 day and indicates a pain score of Nonresponsive. MEDICAL/SURGICAL HISTORY: Non-responsive. Non-responsive. RADIATION DOSE: 42.99 CTDI (mGy) COMPARISON: [facility], CT HEAD W/O CONTRAST, 04/20/2018. . TECHNIQUE: Volumetric scanning was performed using a multi-row detector CT scanner during bolus infu kacey of 80 ml Visipaque 320 (iodixanol) nonionic water-soluble contrast as a cumulative dose for mul tiple exams. The data was post processed with a variety of visualization algorithms including full volume maximum intensity projection, multi-planar sliding thin slab reformation, curved planar reform ation, and surface rendering techniques. Using automated exposure control and adjustment of the mA a nd/or kV according to patient size, radiation dose was kept as low as reasonably achievable to obtain optimal diagnostic quality images. DICOM format image data is available electronically for review a nd comparison. FINDINGS: There is excellent visualization of the major intracranial arteries out to the second-order branch ve ssels. There is no evidence for aneurysm, vessel truncation or stenosis, and no evidence for vascula r malformation. Bilateral thyroid nodules are present measuring up to 3 cm in size. CONCLUSION: 1. No occlusive disease demonstrated. 2. Bilateral relatively large thyroid nodules. Report was called by [ ] Electronically signed by: Micheal Reyes MD 04/20/2018 8:35 PM EST
[2018-04-20] MEDS: Sod Chloride 0.9% Inj 1,000 ML IV.CONT SCH (20:38)
[2018-04-20] MEDS ORDERED: Aspirin 325 MG Tablet PO ONE (20:45)
--- NOTE | 2018-04-20 20:55 | CT ---
EXAM DATE: 04/20/2018 8:48 PM EST AGE/SEX: 82 years / Female INDICATIONS: Left sided weakness. CLINICAL DATA: This is the patient's initial encounter. Patient reports that signs and symptoms have been present for 1 day and indicates a pain score of Nonresponsive. MEDICAL/SURGICAL HISTORY: Non-responsive. Non-responsive. RADIATION DOSE: 42.99 CTDI (mGy) ; Combined studies COMPARISON: [facility], CTA HEAD W CONTRAST W 3D, 04/20/2018. . TECHNIQUE: Volumetric scanning was performed using a multirow detector CT scanner during bolus infus ion of 80 ml Visipaque 320 (iodixanol) nonionic water-soluble contrast as a cumulative dose for mult iple exams. The data was postprocessed with a variety of visualization algorithms including full-vo lume maximum intensity projection, multiplanar sliding thin-slab reformation, curved-planar reformati on, and surface-rendering techniques. Using automated exposure control and adjustment of the mA and/ or kV according to patient size, radiation dose was kept as low as reasonably achievable to obtain op timal diagnostic quality images. DICOM format image data is available electronically for review and comparison. Percent stenosis is calculated using the diameter of the stenotic region over the diameter of the nor mal distal internal carotid artery. FINDINGS: Mild atherosclerosis of the aortic arch and arch vessel origins without narrowing. Bilateral common c arotid arteries are within normal limits. There is calcified atherosclerotic plaque involving the bilateral carotid bulbs and internal carotid arteries. No significant narrowing on the right. There is a short segment, less than 30% narrowing of the proximal left internal carotid artery. Bilateral vertebral arteries are widely patent. The right vertebral artery is dominant. CONCLUSION: No significant occlusive disease within the neck. There is atherosclerosis of the carotid bifurcations; 30% or less in short segment stenosis of the proximal left internal carotid artery. Electronically signed by: Micheal Reyes MD 04/20/2018 8:54 PM EST
[2018-04-20 21:21] LABS: Bilirubin,Urine Negative (Negative); Clarity,Urine Clear (Clear); Color,Urine Yellow (Yellw/Straw); Glucose,Urine (UA) 500 mg/dL (Negative); Leukocyte Esterase,Urine Negative (Negative); Nitrite,Urine Negative (Negative); Specific Gravity,Urine 1.015 (1.002-1.035); Urobilinogen,Urine 0.2 mg/dL (Less than 2)
[2018-04-20 21:23] LABS: Collection Time,Urine 2054 hours
[2018-04-20 21:29] LABS: Amphetamine Screen,Urine Neg (Neg); Barbiturate Screen,Urine Neg (Neg); Cannabinoid Screen,Urine Neg (Neg); Cocaine Screen,Urine Neg (Neg)
[2018-04-20 21:30] LABS: Opiate Screen,Urine Neg (Neg)
--- NOTE | 2018-04-20 21:32 | XR ---
EXAM DATE: 04/20/2018 9:25 PM EST AGE/SEX: 82 years / Female INDICATIONS: Stroke alert. CLINICAL DATA: This is the patient's initial encounter. Patient reports that signs and symptoms have been present for 1 day and indicates a pain score of Nonresponsive. MEDICAL/SURGICAL HISTORY: Non-responsive. Non-responsive. COMPARISON: No prior exams available for comparison. FINDINGS: A single AP view of the chest demonstrates minimal basilar atelectasis. No effusion. No pneumothorax. Heart size enlarged. Tortuous aorta. CONCLUSION: Minimal basilar atelectasis. No effusion or pneumothorax. Cardiomegaly. Electronically signed by: Gopi Briggs MD 04/20/2018 9:30 PM EST
--- NOTE | 2018-04-20 22:22 | MB ---
cc: Sergey Bolaños MD, PhD DATE: 04/20/2018 TELENEUROLOGY CONSULT REASON FOR CONSULTATION: Stroke alert. HISTORY OF PRESENT ILLNESS: Ms. Weston is an 82-year-old female who developed symptoms of flaccid right-sided weakness and difficulty speaking at 6:30 p.m. today. The paramedics were called. When fire initially evaluated her, they found her to be on the floor. They called a stroke alert because she had right facial droop, right-sided weakness and difficulty speaking. However, when the [facility] arrived, she was moving all extremities, did not have a facial droop at that time, did have some speech difficulty, and she was brought into the ER. In the ER, she was moving both sides equally, but initially had difficulty getting words out. PAST MEDICAL HISTORY: History of colon polyps, hypertension, reflux. MEDICATIONS: Unknown; however, the patient denies being on any anticoagulation. NEUROLOGICAL EXAMINATION: This is conducted via the teleneurology unit. The blood pressure 142/57, pulse 112 sinus rhythm, respirations 18 and higher. Cortical function: She is lethargic, but easy to arouse. She is able to answer questions such as her name. I asked the patient to repeat simple phrases. She was able to do this, although softly but there is no sign of aphasia. There is perhaps some slight dysarthria. Cranial nerves: I do not see a facial droop at all. Other cranial nerves intact. Motor exam: She is able to hold both arms in the air equally for at least 10 seconds. She is able to hold the right leg and then the left leg up in the air for at least 10 seconds. There is no reported sensory loss. CT of the brain reveals no acute change present. 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 No hemorrhage. She has had a CT angiogram of the head and that shows no evidence for any large vessel occlusion. There are thyroid nodules present bilaterally as an incidental finding. CT angiogram of the neck shows no significant carotid stenosis. The left internal carotid artery at the bifurcation has 30% or less short segmental stenosis, but no hemodynamically significant lesion. LABORATORY DATA: The white count is 8100, hemoglobin 12.6, hematocrit 37.4%, platelet count 221,000. PT 10.8, INR 1.1, aPTT 21.4. Sodium is 138, potassium 3.4, chloride 103, CO2 22.7. The BUN is 14, creatinine 1, GFR 53, glucose 201. Ammonia less than 10, calcium 8.4, TSH 1.98. EKG: Sinus rhythm. IMPRESSION: Probable transient ischemic attack, would suspect left hemisphere given the symptoms when initially evaluated. Her symptoms have completely resolved. At this time, she is getting back to her baseline state, therefore, I would not recommend IV TPA. She is not a candidate for endovascular therapy either with the rapid improvement in symptomatology, as well as the CTA findings showing no evidence of any large vessel occlusion. RECOMMENDATION: I would recommend starting aspirin 325 mg daily. Recommend further evaluation with an MRI of the brain, echocardiogram, and lipid panel. I will recommend close neurological checks as well. Sergey Bolaños MD, PhD CEDRIC/celina , 09:08 PM , 09:18 PM
[2018-04-20] MEDS ORDERED: Acetaminophen 325 MG Tablet PO PRN (23:18)
--- NOTE | 2018-04-20 23:40 | P.HP ---
History of Present Illness Service: CP hospitalist Primary Care Physician: SARAH mak Chief Complaint: speaking difficulty with weakness left side History of Present Illness: 82-year-old white female known to me with a history of hypertension hyperlipidemia who developed symptoms of flaccid right-sided weakness difficulty speaking left lower extremity weakness. She was noted with the difficulty speaking approximately 6:30 PM today paramedics were called. When she was initially evaluated they found her to be on the floor they called a stroke alert because she had a right facial droop right upper extremity facial weakness and left lower extremity weakness difficulty speaking. When the [facility] did arrive at the house the patient was moving all extremities did not have a facial droop at that time with some mild speech difficulties which she continues to have at this time. In the emergency room she was moving both sides equally still with some difficulty getting words out she was seen via telemedicine neurology and they help could be a brain TIA but they want to rule out CVA workup at this time is unremarkable MRI will be patient was started on full aspirin, also noted on her electrocardiogram she had a sinus with ventricular premature beats some ST depression but looks more like LVH type pattern lab work essentially is unremarkable except for a sugar 200 this will be rechecked in a.m. patient denies chest pain shortness of breath nausea vomiting except a little bit of nausea from the aspirin that she took no change in bowel habit she said she was feeling well up until today. Will admit obtain MRI of the brain patient does have a systolic murmur we will get a 2D echo of the heart I believe this is an old murmur and also obtain lipid profile she was recently started on lipids in 2018. - Diagnosis (1) CVA (cerebral vascular accident) (2) TIA (transient ischemic attack) (3) Hypertension Review of Systems All other systems reviewed negative except as stated in HPI PMFSH - History History Provided By: Patient - Medical History Medical History: Medical History (Last Reviewed 04/20/18 @ 23:38 by Anoop Mak MD) History of stroke Edema History of colon polyps Hypertension Reflux gastritis - Tobacco History Second Hand Smoke Exposure: No Tobacco Use In Past 30 Days: No Smoking Status: Never smoker - Alcohol History How Often Do You Have a Drink Containing Alcohol: Never - Substance Use History Substance History: No History of Abuse - Travel History Recent Travel in the [place] Within the Last 8 Weeks: No Recent Travel Out of the Country Within the Last 8 Weeks: No - Immunization History Tetanus Immunization: Unsure Medications and Allergies Active Medications: Active Medications Acetaminophen (Tylenol) 650 mg PO Q4H PRN PRN Reason: Temp > 100.4 Amlodipine Besylate (Norvasc) 10 mg PO DAILY [facility] Aspirin (Aspirin) 325 mg PO DAILY [facility] Atorvastatin Calcium (Lipitor) 20 mg PO DAILY [facility] Bumetanide (Bumex) 0.5 mg PO DAILY [facility] Clonidine HCl (Catapres) 0.1 mg PO TID [facility] Sodium Chloride (Ns Inj) 1,000 mls @ 70 mls/hr IV.CONT .[id number] EDUARDO Last Admin: 04/20/18 20:38 Dose: 70 mls/hr Ondansetron HCl (Zofran Inj) 4 mg IV.PUSH Q6H PRN PRN Reason: NAUSEA OR VOMITING Pantoprazole Sodium (Protonix Inj) 40 mg IV.PUSH Q24H [facility] Senna/Docusate Sodium (Nydia-Colace) 1 tab PO BID [facility] Sodium Chloride (Ns Flush) 2 ml IV.FLUSH PRN PRN PRN Reason: FLUSH AFTER USING IV ACCESS Sodium Chloride (Ns Flush) 2 ml IV.FLUSH BID EDUARDO Allergies Allergy/AdvReac Type Severity Reaction Status Date / Time chocolate flavor Allergy Severe itching Verified 04/20/18 19:56 codeine Allergy Severe SHORT OF Verified 04/20/18 19:56 BREATH/PIMPLES gluten Allergy Severe gi upset Verified 04/20/18 19:56 metronidazole Allergy Severe gi upset Verified 04/20/18 19:56 Sulfa (Sulfonamide Allergy Severe RASH Verified 04/20/18 19:56 Antibiotics) wheat Allergy Severe CANNOT Verified 04/20/18 19:56 BREATH aspirin AdvReac Severe "MAKES ME Verified 04/20/18 19:56 SLEEPY" WITH LARGE DOSES Yeast AdvReac Severe NAUSEA/VOMI Verified 04/20/18 19:56 TING milk AdvReac Intermediate DIARRHEA Verified 04/20/18 19:56 soy AdvReac Intermediate ABDOMINAL Verified 04/20/18 19:56 CRAMPS SHARK Allergy Severe CANNOT Uncoded 12/23/07 03:08 BREATH NUTS AdvReac Intermediate DIVERTICULI Uncoded 11/14/12 03:08 TIS Home Medications Medication Instructions Recorded Confirmed Type amlodipine 10 mg PO DAILY 04/20/18 04/20/18 History aspirin [Aspirin Low Dose] 81 mg PO DIRECTED 04/20/18 04/20/18 History atorvastatin 20 mg PO DAILY 04/20/18 04/20/18 History bumetanide 0.5 mg PO DAILY 04/20/18 04/20/18 History clonidine HCl 0.1 mg PO TID 04/20/18 04/20/18 History Exam Vital signs: Vital Signs 04/20/18 19:50 04/20/18 20:05 04/20/18 20:13 Pulse Rate 112 H Respiratory Rate 18 Blood Pressure 142/57 H Pulse Oximetry 95 95 95 04/20/18 20:16 04/20/18 20:23 04/20/18 20:38 Pulse Rate 100 H 101 H 100 H Respiratory Rate 18 16 16 Blood Pressure 149/63 H 161/74 H 166/57 H Pulse Oximetry 92 L 96 04/20/18 21:38 04/20/18 22:38 Pulse Rate 92 H 86 Respiratory Rate 16 18 Blood Pressure 151/60 H 124/57 L Pulse Oximetry 97 97 Intake & Output 04/20/18 04/20/18 04/21/18 06:59 18:59 06:59 Weight 80.9 kg Results - Labs CBC & Chem 7: 04/20/18 19:50 04/20/18 19:50 Labs: Laboratory Results - last 24 hr 04/20/18 04/20/18 04/20/18 19:50 19:50 19:50 CBC w Diff Auto diff final WBC 8.1 RBC 4.30 Hgb 12.6 Hct 37.4 MCV 86.9 MCH 29.3 MCHC 33.8 RDW 13.9 Plt Count 221 MPV 7.8 Neut % (Auto) 80.8 H Lymph % (Auto) 16.1 Ogle % (Auto) 2.2 Eos % (Auto) 0.4 Baso % (Auto) 0.5 Neut # (Auto) 6.6 Lymph # (Auto) 1.3 Ogle # (Auto) 0.2 Eos # (Auto) 0.0 Baso # (Auto) 0.0 WBC Differential . Differential Comment . PT 10.8 INR 1.1 APTT 21.4 L Sodium 138 Potassium 3.4 L Chloride 103 Carbon Dioxide 22.7 Anion Gap 12 BUN 14 Creatinine 1.00 Estimated GFR 53 L POC Glucose Random Glucose 192 H Calcium 8.4 L Ammonia Total Creatine Kinase 78 Troponin I 0.03 TSH Urine Color Urine Clarity Urine pH Ur Specific [place] Urine Protein Urine Glucose (UA) Urine Ketones Urine Occult Blood Urine Nitrate Urine Bilirubin Urine Urobilinogen Ur Leukocyte Esterase Micro UA Comment Ur Microscopic Review Urine Culture Comments Urine Collection Time Urine Opiates Screen Ur Barbiturates Screen Ur Amphetamines Screen U Benzodiazepines Scrn Urine Cocaine Screen U Cannabinoids Screen Blood Type Antibody Screen 04/20/18 04/20/18 04/20/18 19:50 19:50 19:58 CBC w Diff WBC RBC Hgb Hct MCV MCH MCHC RDW Plt Count MPV Neut % (Auto) Lymph % (Auto) Ogle % (Auto) Eos % (Auto) Baso % (Auto) Neut # (Auto) Lymph # (Auto) Ogle # (Auto) Eos # (Auto) Baso # (Auto) WBC Differential Differential Comment PT INR APTT Sodium Potassium Chloride Carbon Dioxide Anion Gap BUN Creatinine Estimated GFR POC Glucose 201 H Random Glucose Calcium Ammonia Total Creatine Kinase Troponin I TSH 1.980 Urine Color Urine Clarity Urine pH Ur Specific [place] Urine Protein Urine Glucose (UA) Urine Ketones Urine Occult Blood Urine Nitrate Urine Bilirubin Urine Urobilinogen Ur Leukocyte Esterase Micro UA Comment Ur Microscopic Review Urine Culture Comments Urine Collection Time Urine Opiates Screen Ur Barbiturates Screen Ur Amphetamines Screen U Benzodiazepines Scrn Urine Cocaine Screen U Cannabinoids Screen Blood Type O Positive Antibody Screen Negative 04/20/18 04/20/18 04/20/18 20:40 20:54 20:54 CBC w Diff WBC RBC Hgb Hct MCV MCH MCHC RDW Plt Count MPV Neut % (Auto) Lymph % (Auto) Ogle % (Auto) Eos % (Auto) Baso % (Auto) Neut # (Auto) Lymph # (Auto) Ogle # (Auto) Eos # (Auto) Baso # (Auto) WBC Differential Differential Comment PT INR APTT Sodium Potassium Chloride Carbon Dioxide Anion Gap BUN Creatinine Estimated GFR POC Glucose Random Glucose Calcium Ammonia Less than 10 L Total Creatine Kinase Troponin I TSH Urine Color Yellow Urine Clarity Clear Urine pH 7.0 Ur Specific [place] 1.015 Urine Protein Trace Urine Glucose (UA) 500 H Urine Ketones Trace H Urine Occult Blood Small H Urine Nitrate Negative Urine Bilirubin Negative Urine Urobilinogen 0.2 Ur Leukocyte Esterase Negative Micro UA Comment Culture not ind Ur Microscopic Review Microscopic reviewed Urine Culture Comments Culture not ind Urine Collection Time 2053 Urine Opiates Screen Neg Ur Barbiturates Screen Neg Ur Amphetamines Screen Neg U Benzodiazepines Scrn Neg Urine Cocaine Screen Neg U Cannabinoids Screen Neg Blood Type Antibody Screen - Imaging Impressions Chest X-Ray 04/20/18 19:55 CONCLUSION: Minimal basilar atelectasis. No effusion or pneumothorax. Cardiomegaly. Head CT 04/20/18 19:55 CONCLUSION: 1. No bleed or other acute intracranial abnormality. 2. 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 Report was called by [Dr. Reyes to Dr. Briscoe at 8:13 PM ] Head CTA 04/20/18 19:55 CONCLUSION: 1. No occlusive disease demonstrated. 2. Bilateral relatively large thyroid nodules. Report was called by [ ] Neck CTA 04/20/18 19:55 CONCLUSION: No significant occlusive disease within the neck. There is atherosclerosis of the carotid bifurcations; 30% or less in short segment stenosis of the proximal left internal carotid artery. Caprini VTE Risk Assessment Caprini VTE Risk Assessment: Moderate/High Risk (score >= 2) Caprini Risk Assessment Model: Point Value = 1 Point Value = 2 Point Value = 3 Point Value = 5 Age 41-60 Minor surgery BMI > 25 kg/m2 Swollen legs Varicose veins or History of unexplained or recurrent spontaneous Oral contraceptives or hormone replacement Sepsis (< 1 month) Serious lung disease, including pneumonia (< 1 month) Abnormal pulmonary function Acute myocardial infarction Congestive heart failure (< 1 month) History of inflammatory bowel disease Medical patient at bed rest Age 61-74 Arthroscopic surgery Major open surgery (> 45 min) Laparoscopic surgery (> 45 min) Malignancy Confined to bed (> 72 hours) Immobilizing plaster cast Central venous access Age >= 75 History of VTE Family history of VTE Factor V Leiden Prothrombin [id number] Lupus anticoagulant Anticardiolipin antibodies Elevated serum homocysteine Heparin-induced thrombocytopenia Other congenital or acquired thrombophilia Stroke (< 1 month) Elective arthroplasty Hip, pelvis, or leg fracture Acute spinal cord injury (< 1 month) Prophylaxis Regimen: Total Risk Factor Score Risk Level Prophylaxis Regimen 0-1 Low Early ambulation 2 Moderate Order ONE of the following: *Sequential Compression Device (SCD) *Heparin 5000 units SQ BID 3-4 Higher Order ONE of the following medications: *Heparin 5000 units SQ TID *Enoxaparin/Lovenox 40 mg SQ daily (WT < 150 kg, CrCl > 30 mL/min) *Enoxaparin/Lovenox 30 mg SQ daily (WT < 150 kg, CrCl > 10-29 mL/min) *Enoxaparin/Lovenox 30 mg SQ BID (WT < 150 kg, CrCl > 30 mL/min) AND/OR *Sequential Compression Device (SCD) 5 or more Highest Order ONE of the following medications: *Heparin 5000 units SQ TID (Preferred with Epidurals) *Enoxaparin/Lovenox 40 mg SQ daily (WT < 150 kg, CrCl > 30 mL/min) *Enoxaparin/Lovenox 30 mg SQ daily (WT < 150 kg, CrCl > 10-29 mL/min) *Enoxaparin/Lovenox 30 mg SQ BID (WT < 150 kg, CrCl > 30 mL/min) AND *Sequential Compression Device (SCD) Assessment and Plan - Assessment (1) CVA (cerebral vascular accident) Code(s): I63.9 - Cerebral infarction, unspecified Status: Acute Plan: We will get physical therapy to evaluate patient will continue aspirin for now MRI of the brain 2D echo of the heart ordered CT scans and CTA scans are unremarkable. (2) TIA (transient ischemic attack) Code(s): G45.9 - Transient cerebral ischemic attack, unspecified Status: Acute Plan: Most likely etiology as the patient is able to move her extremities and I do not appreciate a facial droop at this time is a possible TIA again workup will be initiated (3) Hypertension Code(s): I10 - Essential (primary) hypertension Status: Acute Plan: Continue home blood pressure medicines amlodipine and clonidine - Plan Further plan as case develops and results of tests Code Status: Full Discussed Condition With: Patient
[2018-04-20] MEDS: Pantoprazole Inj 40 MG Vial IV.PUSH SCH (23:41)
[2018-04-21 05:55] LABS: Baso % (Auto) 0.5 % (0.0-2.0); Eos # (Auto) 0.1 th/mm3 (0.0-0.4); Eos % (Auto) 0.8 % (0.0-4.0); Hematocrit 33.8 % (35.0-46.0); Hemoglobin 11.1 gm/dL (11.6-15.3); Lymph # (Auto) 1.6 th/mm3 (1.0-4.8); Lymph % (Auto) 22.8 % (9.0-44.0); Mean Corpuscular HGB Conc 32.8 % (32.0-36.0); Mean Corpuscular Hemoglobin 28.1 pg (27.0-34.0); Mean Corpuscular Volume 85.7 fL (80.0-100.0); Mean Platelet Volume 7.9 fL (7.0-11.0); Mono # (Auto) 0.6 th/mm3 (0.0-0.9); Mono % (Auto) 8.3 % (0.0-8.0); Neut # (Auto) 4.5 th/mm3 (1.8-7.7); Neut % (Auto) 67.6 % (16.0-70.0); Platelet Count 203 th/mm3 (150-450); Red Blood Count 3.94 mil/mm3 (4.00-5.30); Red Cell Distribution Width 14.2 % (11.6-17.2); White Blood Count 6.8 th/mm3 (4.0-11.0)
[2018-04-21 06:06] LABS: Potassium 3.2 meq/L (3.5-5.1)
[2018-04-21 06:11] LABS: Calcium 7.9 mg/dL (8.5-10.1); Carbon Dioxide 26.8 meq/L (21.0-32.0)
[2018-04-21 06:22] LABS: Troponin I 0.11 ng/mL (0.02-0.05)
[2018-04-21] MEDS ORDERED: Gadobutrol PF 7.5 MMOL/7.5 ML Vial (for RAD) IV.SIG ONE (09:23)
--- NOTE | 2018-04-21 09:44 | MR ---
EXAM DATE: 04/21/2018 9:26 AM EST AGE/SEX: 82 years / Female INDICATIONS: . Right facial droop, Dysphasia. CLINICAL DATA: This is the patient's initial encounter. Patient reports that signs and symptoms have been present for 1 day and indicates a pain score of 0/10. MEDICAL/SURGICAL HISTORY: Hypertension. CVA. Cholecystectomy. Total knee replacement, left. COMPARISON: No prior exams available for comparison. TECHNIQUE: Multiplanar, multisequence examination of the brain was performed without and with 7cc ml Gadavist (gadobutrol) contrast as a single exam dose. FINDINGS: Cerebrum: There are moderate periventricular white matter changes. This is associated with central a nd cortical atrophy. There is no parenchymal hemorrhage. Old lacunar infarct is seen in the basal sumit glia right side. There are no extra-axial fluid collections appreciated. There is a subtle restricted diffusion in the posterior limb internal capsule that could be evidence for subacute ischemia. Posterior fossa: Fourth ventricle is midline. Minimal old ischemic changes are seen in the brainstem. There is hyperostosis frontalis interna. . CONCLUSION: 1. Marked periventricular white matter changes with old lacunar infarct basal ganglia right side. 2. Subtle restricted diffusion posterior limb internal capsule left side that could be subacute isch emic changes. 3. There is no parenchymal hemorrhage. Electronically signed by: Carlos Lemus MD 04/21/2018 9:43 AM EST
[2018-04-21] MEDS: Senna/Docusate Sodium 8.6/50 MG Tablet PO SCH ×2 (09:50→21:11)
[2018-04-21] MEDS: Aspirin 325 MG Tablet PO SCH (09:50)
[2018-04-21] MEDS: amLODIPine 10 MG Tablet PO SCH (09:51)
[2018-04-21 10:13] LABS: Chol/HDL Ratio 2.86 Ratio; HDL Cholesterol 53.1 mg/dL (40.0-60.0)
--- NOTE | 2018-04-21 11:55 | P.PN ---
Subjective Interval history: Patient feeling ok does not remember what happened last night brought in as stroke alert ,? CVA vs TIA on full asa ,MRI suggests subacute ischemia posterior limb,also had ekg showed some st twave changes ,with slightly positive troponin levels has systolic murmur 2d echo pending. Physical Exam Vital signs: Vital Signs 04/20/18 19:50 04/20/18 20:05 04/20/18 20:13 Temperature Pulse Rate 112 H Respiratory Rate 18 Blood Pressure 142/57 H Pulse Oximetry 95 95 95 04/20/18 20:16 04/20/18 20:23 04/20/18 20:38 Temperature Pulse Rate 100 H 101 H 100 H Respiratory Rate 18 16 16 Blood Pressure 149/63 H 161/74 H 166/57 H Pulse Oximetry 92 L 96 04/20/18 21:38 04/20/18 22:38 04/20/18 23:38 Temperature Pulse Rate 92 H 86 81 Respiratory Rate 16 18 16 Blood Pressure 151/60 H 124/57 L 140/56 L Pulse Oximetry 97 97 98 04/20/18 23:49 04/21/18 01:37 04/21/18 01:40 Temperature 98.8 F Pulse Rate 86 87 Respiratory Rate 25 H Blood Pressure 140/71 Pulse Oximetry 98 95 95 04/21/18 02:55 04/21/18 03:10 04/21/18 04:00 Temperature 99.2 F Pulse Rate 76 Respiratory Rate 20 Blood Pressure 107/43 L Pulse Oximetry 97 96 04/21/18 07:54 04/21/18 08:00 Temperature 98.4 F Pulse Rate 69 Respiratory Rate 14 Blood Pressure 138/69 Pulse Oximetry 96 96 Intake & Output 04/20/18 04/21/18 04/21/18 18:59 06:59 18:59 Intake Total 558 / 558 Output Total 1150 / 1150 Balance -592 / -592 Weight 76.7 kg Intake: IV 558 / 558 NS Inj 1,000 ML @ 70 mls/hr IV. 558 / 558 CONT .[id number] [facility] Rx#: [id number] Oral 0 / 0 Output: Urine Amount (Catheter) 1150 / 1150 Indwelling Urethral Catheter 1150 / 1150 Other: Date of Last Bowel Movement 04/21/18 04/20/18 Weight On Admission 76.7 kg Narrative: GENERAL: SKIN: Warm and dry. HEAD: Normocephalic. EYES: No scleral icterus. No injection or drainage. NECK: Supple, trachea midline. No JVD or lymphadenopathy. CARDIOVASCULAR: Regular rate and rhythm 2/6 systolic murmur, gallops, or rubs. RESPIRATORY: Breath sounds equal bilaterally. No accessory muscle use. GASTROINTESTINAL: Abdomen soft, non-tender, nondistended. MUSCULOSKELETAL: No cyanosis, or edema. BACK: Nontender without obvious deformity. No CVA tenderness. - Urinary Catheter Management Indwelling Urethral Catheter Cath placed during this visit: yes Reason for continuing: Hourly intake/output Insertion date: 04/20/18 Insertion time: 20:54 Results - Labs CBC & Chem 7: 04/21/18 04:40 04/21/18 04:40 Laboratory Results - last 24 hr 04/20/18 04/20/18 04/20/18 19:50 19:50 19:50 CBC w Diff Auto diff final WBC 8.1 RBC 4.30 Hgb 12.6 Hct 37.4 MCV 86.9 MCH 29.3 MCHC 33.8 RDW 13.9 Plt Count 221 MPV 7.8 Neut % (Auto) 80.8 H Lymph % (Auto) 16.1 [place] % (Auto) 2.2 Eos % (Auto) 0.4 Baso % (Auto) 0.5 Neut # (Auto) 6.6 Lymph # (Auto) 1.3 [place] # (Auto) 0.2 Eos # (Auto) 0.0 Baso # (Auto) 0.0 WBC Differential . Differential Comment . PT 10.8 INR 1.1 APTT 21.4 L Sodium 138 Potassium 3.4 L Chloride 103 Carbon Dioxide 22.7 Anion Gap 12 BUN 14 Creatinine 1.00 Estimated GFR 53 L POC Glucose Random Glucose 192 H Calcium 8.4 L Ammonia Total Creatine Kinase 78 Troponin I 0.03 Triglycerides Cholesterol LDL Cholesterol, Calc HDL Cholesterol Cholesterol/HDL Ratio TSH Urine Color Urine Clarity Urine pH Ur Specific [place] Urine Protein Urine Glucose (UA) Urine Ketones Urine Occult Blood Urine Nitrate Urine Bilirubin Urine Urobilinogen Ur Leukocyte Esterase Micro UA Comment Ur Microscopic Review Urine Culture Comments Urine Collection Time Urine Opiates Screen Ur Barbiturates Screen Ur Amphetamines Screen U Benzodiazepines Scrn Urine Cocaine Screen U Cannabinoids Screen Blood Type Antibody Screen 04/20/18 04/20/1818 19:50 19:50 19:58 CBC w Diff WBC RBC Hgb Hct MCV MCH MCHC RDW Plt Count MPV Neut % (Auto) Lymph % (Auto) [place] % (Auto) Eos % (Auto) Baso % (Auto) Neut # (Auto) Lymph # (Auto) [place] # (Auto) Eos # (Auto) Baso # (Auto) WBC Differential Differential Comment PT INR APTT Sodium Potassium Chloride Carbon Dioxide Anion Gap BUN Creatinine Estimated GFR POC Glucose 201 H Random Glucose Calcium Ammonia Total Creatine Kinase Troponin I Triglycerides Cholesterol LDL Cholesterol, Calc HDL Cholesterol Cholesterol/HDL Ratio TSH 1.980 Urine Color Urine Clarity Urine pH Ur Specific [place] Urine Protein Urine Glucose (UA) Urine Ketones Urine Occult Blood Urine Nitrate Urine Bilirubin Urine Urobilinogen Ur Leukocyte Esterase Micro UA Comment Ur Microscopic Review Urine Culture Comments Urine Collection Time Urine Opiates Screen Ur Barbiturates Screen Ur Amphetamines Screen U Benzodiazepines Scrn Urine Cocaine Screen U Cannabinoids Screen Blood Type O Positive Antibody Screen Negative 04/20/18 04/20/18 04/20/18 20:40 20:54 20:54 CBC w Diff WBC RBC Hgb Hct MCV MCH MCHC RDW Plt Count MPV Neut % (Auto) Lymph % (Auto) [place] % (Auto) Eos % (Auto) Baso % (Auto) Neut # (Auto) Lymph # (Auto) [place] # (Auto) Eos # (Auto) Baso # (Auto) WBC Differential Differential Comment PT INR APTT Sodium Potassium Chloride Carbon Dioxide Anion Gap BUN Creatinine Estimated GFR POC Glucose Random Glucose Calcium Ammonia Less than 10 L Total Creatine Kinase Troponin I Triglycerides Cholesterol LDL Cholesterol, Calc HDL Cholesterol Cholesterol/HDL Ratio TSH Urine Color Yellow Urine Clarity Clear Urine pH 7.0 Ur Specific [place] 1.015 Urine Protein Trace Urine Glucose (UA) 500 H Urine Ketones Trace H Urine Occult Blood Small H Urine Nitrate Negative Urine Bilirubin Negative Urine Urobilinogen 0.2 Ur Leukocyte Esterase Negative Micro UA Comment Culture not ind Ur Microscopic Review Microscopic reviewed Urine Culture Comments Culture not ind Urine Collection Time 2053 Urine Opiates Screen Neg Ur Barbiturates Screen Neg Ur Amphetamines Screen Neg U Benzodiazepines Scrn Neg Urine Cocaine Screen Neg U Cannabinoids Screen Neg Blood Type Antibody Screen 04/21/18 04/21/18 04/21/18 01:45 04:40 04:40 CBC w Diff Auto diff final WBC 6.8 RBC 3.94 L Hgb 11.1 L Hct 33.8 L MCV 85.7 MCH 28.1 MCHC 32.8 RDW 14.2 Plt Count 203 MPV 7.9 Neut % (Auto) 67.6 Lymph % (Auto) 22.8 [place] % (Auto) 8.3 H Eos % (Auto) 0.8 Baso % (Auto) 0.5 Neut # (Auto) 4.5 Lymph # (Auto) 1.6 [place] # (Auto) 0.6 Eos # (Auto) 0.1 Baso # (Auto) 0.0 WBC Differential . Differential Comment . PT INR APTT Sodium 142 Potassium 3.2 L Chloride 108 H Carbon Dioxide 26.8 Anion Gap 7 BUN 10 Creatinine 0.78 Estimated GFR 70 L POC Glucose Random Glucose 89 D Calcium 7.9 L Ammonia Total Creatine Kinase Troponin I 0.11 H 0.11 H Triglycerides 61 Cholesterol 152 LDL Cholesterol, Calc 87 HDL Cholesterol 53.1 Cholesterol/HDL Ratio 2.86 TSH Urine Color Urine Clarity Urine pH Ur Specific [place] Urine Protein Urine Glucose (UA) Urine Ketones Urine Occult Blood Urine Nitrate Urine Bilirubin Urine Urobilinogen Ur Leukocyte Esterase Micro UA Comment Ur Microscopic Review Urine Culture Comments Urine Collection Time Urine Opiates Screen Ur Barbiturates Screen Ur Amphetamines Screen U Benzodiazepines Scrn Urine Cocaine Screen U Cannabinoids Screen Blood Type Antibody Screen 04/21/18 08:37 CBC w Diff WBC RBC Hgb Hct MCV MCH MCHC RDW Plt Count MPV Neut % (Auto) Lymph % (Auto) [place] % (Auto) Eos % (Auto) Baso % (Auto) Neut # (Auto) Lymph # (Auto) [place] # (Auto) Eos # (Auto) Baso # (Auto) WBC Differential Differential Comment PT INR APTT Sodium Potassium Chloride Carbon Dioxide Anion Gap BUN Creatinine Estimated GFR POC Glucose 106 Random Glucose Calcium Ammonia Total Creatine Kinase Troponin I Triglycerides Cholesterol LDL Cholesterol, Calc HDL Cholesterol Cholesterol/HDL Ratio TSH Urine Color Urine Clarity Urine pH Ur Specific [place] Urine Protein Urine Glucose (UA) Urine Ketones Urine Occult Blood Urine Nitrate Urine Bilirubin Urine Urobilinogen Ur Leukocyte Esterase Micro UA Comment Ur Microscopic Review Urine Culture Comments Urine Collection Time Urine Opiates Screen Ur Barbiturates Screen Ur Amphetamines Screen U Benzodiazepines Scrn Urine Cocaine Screen U Cannabinoids Screen Blood Type Antibody Screen - Imaging Impressions Chest X-Ray 04/20/18 19:55 CONCLUSION: Minimal basilar atelectasis. No effusion or pneumothorax. Cardiomegaly. Head CT 04/20/18 19:55 CONCLUSION: 1. No bleed or other acute intracranial abnormality. 2. 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 Report was called by [Dr. Reyes to Dr. Briscoe at 8:13 PM ] Head CTA 04/20/18 19:55 CONCLUSION: 1. No occlusive disease demonstrated. 2. Bilateral relatively large thyroid nodules. Report was called by [ ] Neck CTA 04/20/18 19:55 CONCLUSION: No significant occlusive disease within the neck. There is atherosclerosis of the carotid bifurcations; 30% or less in short segment stenosis of the proximal left internal carotid artery. Head MRI 04/21/18 07:14 . CONCLUSION: 1. Marked periventricular white matter changes with old lacunar infarct basal ganglia right side. 2. Subtle restricted diffusion posterior limb internal capsule left side that could be subacute ischemic changes. 3. There is no parenchymal hemorrhage. Assessment and Plan - Assessment (1) CVA (cerebral vascular accident) Code(s): I63.9 - Cerebral infarction, unspecified Status: Acute Plan: We will get physical therapy to evaluate patient will continue aspirin MRI of the brain , ischemic subacute changes posterior limb,2D echo of the heart ordered CT scans and CTA scans are unremarkable. (2) TIA (transient ischemic attack) Code(s): G45.9 - Transient cerebral ischemic attack, unspecified Status: Acute Plan: Most likely etiology as the patient is able to move her extremities and I do not appreciate a facial droop at this time is a possible TIA again workup will be initiated (3) Hypertension Code(s): I10 - Essential (primary) hypertension Status: Acute Plan: Continue home blood pressure medicines amlodipine and clonidine (4) Elevated troponin Code(s): R74.8 - Abnormal levels of other serum enzymes Status: Acute Plan: ekg does show some st twave changes may be lvh with strain but does have positive troponin level will ask for cardiac evaluation as patient does not recall events that brought her to hospital. - Plan Further plan as case develops and results of tests
[2018-04-21] MEDS: Sod Chloride 0.9% Inj 1,000 ML IV.CONT SCH (12:24)
--- NOTE | 2018-04-21 14:38 | P.CONCA ---
History of Present Illness Service: [facility] cardiology Consult date: 04/21/18 Requesting Physician: Anoop Mancuso Reason for Consult: elevated troponin Primary Care Provider: UNKNOWN Chief Complaint: speaking difficulty with weakness left side History of Present Illness: 82-year-old lady with a history of hypertension, dyslipidemia and obesity who was admitted to [facility] on 06/21/17 after she had difficulty getting out of bed. She reports that she had weakness and difficulty speaking. She cannot recall the details of the event at this time. Review of prior notes reveals notation of flaccid right-sided weakness with difficulty speaking and left lower extremity weakness. Apparently a stroke code was called because she had right-sided facial droop and right upper extremity facial weakness and left lower extremity weakness with difficulty speaking. When she was evaluated in the emergency room she was moving both sides equally but still with dysarthria. She was evaluated via telemedicine with neurology and underwent multiple studies including CTA head neck and brain and MRI. The MRI revealed subtle restricted diffusion of the posterior limb internal capsule left side that could be subacute ischemic changes. Old lacunar infarct basal ganglia right side. Patient denied any chest pain, palpitations, dyspnea, worsening lower extremity edema, PND or orthopnea. She feels to be in her usual state of health at this time. EKG 04/20/18: Shows NSR, no ST elevation or significant depression, and frequent PVC. No significant T-wave inversions EKG 04/21/18: No significant change from prior EKG. Frequent PVCs have resolved. Initial troponin negative with subsequent troponin 0.11. Cardiology was consulted due to slight elevation in troponin. Review of Systems All other systems reviewed negative except as stated in HPI [facility] - History History Provided By: Patient - Medical History Medical History: Medical History (Last Reviewed 04/21/18 @ 13:33 by Nita Polo) History of stroke Edema History of colon polyps Hypertension Reflux gastritis - Tobacco History Second Hand Smoke Exposure: No Tobacco Use In Past 30 Days: No Smoking Status: Never smoker - Alcohol History How Often Do You Have a Drink Containing Alcohol: Never - Substance Use History Substance History: No History of Abuse - Travel History Recent Travel in the [facility] Within the Last 8 Weeks: No Recent Travel Out of the Country Within the Last 8 Weeks: No - Immunization History Tetanus Immunization: Unsure Hx Influenza Vaccine This Season: Yes Medications and Allergies Active Medications: Active Medications Acetaminophen (Tylenol) 650 mg PO Q4H PRN PRN Reason: Temp > 100.4 Amlodipine Besylate (Norvasc) 10 mg PO DAILY [facility] Last Admin: 04/21/18 09:51 Dose: 10 mg Aspirin (Aspirin) 325 mg PO DAILY [facility] Last Admin: 04/21/18 09:50 Dose: 325 mg Atorvastatin Calcium (Lipitor) 20 mg PO DAILY [facility] Last Admin: 04/21/18 09:50 Dose: 20 mg Bumetanide (Bumex) 0.5 mg PO DAILY [facility] Last Admin: 04/21/18 09:50 Dose: 0.5 mg Clonidine HCl (Catapres) 0.1 mg PO TID [facility] Last Admin: 04/21/18 09:50 Dose: 0.1 mg Sodium Chloride (Ns Inj) 1,000 mls @ 70 mls/hr IV.CONT .[id number] [facility] Last Admin: 04/21/18 12:24 Dose: 70 mls/hr Ondansetron HCl (Zofran Inj) 4 mg IV.PUSH Q6H PRN PRN Reason: NAUSEA OR VOMITING Pantoprazole Sodium (Protonix Inj) 40 mg IV.PUSH Q24H [facility] Last Admin: 04/20/18 23:41 Dose: 40 mg Senna/Docusate Sodium (Nydia-Colace) 1 tab PO BID [facility] Last Admin: 04/21/18 09:50 Dose: 1 tab Sodium Chloride (Ns Flush) 2 ml IV.FLUSH PRN PRN PRN Reason: FLUSH AFTER USING IV ACCESS Sodium Chloride (Ns Flush) 2 ml IV.FLUSH BID [facility] Last Admin: 04/21/18 09:51 Dose: 2 ml Allergies Allergy/AdvReac Type Severity Reaction Status Date / Time chocolate flavor Allergy Severe itching Verified 04/20/18 19:56 codeine Allergy Severe SHORT OF Verified 04/20/18 19:56 BREATH/PIMPLES gluten Allergy Severe gi upset Verified 04/20/18 19:56 metronidazole Allergy Severe gi upset Verified 04/20/18 19:56 Sulfa (Sulfonamide Allergy Severe RASH Verified 04/20/18 19:56 Antibiotics) wheat Allergy Severe CANNOT Verified 04/20/18 19:56 BREATH aspirin AdvReac Severe "MAKES ME Verified 04/20/18 19:56 SLEEPY" WITH LARGE DOSES Yeast AdvReac Severe NAUSEA/VOMI Verified 04/20/18 19:56 TING milk AdvReac Intermediate DIARRHEA Verified 04/20/18 19:56 soy AdvReac Intermediate ABDOMINAL Verified 04/20/18 19:56 CRAMPS SHARK Allergy Severe CANNOT Uncoded 12/23/07 03:08 BREATH NUTS AdvReac Intermediate DIVERTICULI Uncoded 11/14/12 03:08 TIS Home Medications Medication Instructions Recorded Confirmed Type amlodipine 10 mg PO DAILY 04/20/18 04/20/18 History aspirin [Aspirin Low Dose] 81 mg PO DIRECTED 04/20/18 04/20/18 History atorvastatin 20 mg PO DAILY 04/20/18 04/20/18 History bumetanide 0.5 mg PO DAILY 04/20/18 04/20/18 History clonidine HCl 0.1 mg PO TID 04/20/18 04/20/18 History Exam Vital signs: Vital Signs 04/20/18 19:50 04/20/18 20:05 04/20/18 20:13 Temperature Pulse Rate 112 H Respiratory Rate 18 Blood Pressure 142/57 H Pulse Oximetry 95 95 95 04/20/18 20:16 04/20/18 20:23 04/20/18 20:38 Temperature Pulse Rate 100 H 101 H 100 H Respiratory Rate 18 16 16 Blood Pressure 149/63 H 161/74 H 166/57 H Pulse Oximetry 92 L 96 04/20/18 21:38 04/20/18 22:38 04/20/18 23:38 Temperature Pulse Rate 92 H 86 81 Respiratory Rate 16 18 16 Blood Pressure 151/60 H 124/57 L 140/56 L Pulse Oximetry 97 97 98 04/20/18 23:49 04/21/18 01:37 04/21/18 01:40 Temperature 98.8 F Pulse Rate 86 87 Respiratory Rate 25 H Blood Pressure 140/71 Pulse Oximetry 98 95 95 04/21/18 02:55 04/21/18 03:10 04/21/18 04:00 Temperature 99.2 F Pulse Rate 76 Respiratory Rate 20 Blood Pressure 107/43 L Pulse Oximetry 97 96 04/21/18 07:50 04/21/18 07:54 04/21/18 08:00 Temperature 98.4 F 98.4 F Pulse Rate 80 69 Respiratory Rate 30 H 14 Blood Pressure 138/69 138/69 Pulse Oximetry 99 96 96 04/21/18 10:05 Temperature Pulse Rate 72 Respiratory Rate 21 Blood Pressure 150/69 H Pulse Oximetry 98 Intake & Output 04/20/18 04/21/18 04/21/18 18:59 06:59 18:59 Intake Total 558 / 558 442 / 442 Output Total 1150 / 1150 Balance -592 / -592 442 / 442 Weight 76.7 kg Intake: IV 558 / 558 442 / 442 NS Inj 1,000 ML @ 70 mls/hr IV. 558 / 558 442 / 442 CONT .[id number] Rx#: [id number] Oral 0 / 0 Output: Urine Amount (Catheter) 1150 / 1150 Indwelling Urethral Catheter 1150 / 1150 Other: Date of Last Bowel Movement 04/21/18 04/20/18 Weight On Admission 76.7 kg Narrative: GENERAL: Awake, alert and oriented, speaking full sentences with no acute distress. SKIN: Warm and dry. HEAD: Atraumatic. Normocephalic. EYES: Pupils equal and round. No scleral icterus. No injection or drainage. ENT: No nasal bleeding or discharge. Mucous membranes pink and moist. NECK: Trachea midline. No JVD. CARDIOVASCULAR: Regular rate and rhythm. 2/6 systolic ejection murmur RESPIRATORY: No accessory muscle use. Clear to auscultation. Breath sounds equal bilaterally. GASTROINTESTINAL: Abdomen soft, non-tender, nondistended. Hepatic and splenic margins not palpable. MUSCULOSKELETAL: Extremities without clubbing, cyanosis. There is trace bilateral lower extremity edema. No obvious deformities. NEUROLOGICAL: Awake and alert. No obvious cranial nerve deficits. Motor grossly within normal limits. Normal speech. PSYCHIATRIC: Appropriate mood and affect; insight and judgment normal. Results 04/21/18 04:40 04/21/18 04:40 Cardiac Enzymes 04/20/18 04/21/18 04/21/18 Range/Units 19:50 01:45 04:40 Troponin I 0.03 0.11 H 0.11 H (0.02-0.05) ng/mL Coagulation 04/20/18 Range/Units 19:50 PT 10.8 (9.8-11.6) sec APTT 21.4 L (23.4-31.7) sec Lipids 04/21/18 Range/Units 04:40 Triglycerides 61 (42-150) mg/dL Cholesterol 152 (120-200) mg/dL HDL Cholesterol 53.1 (40.0-60.0) mg/dL Cholesterol/HDL Ratio 2.86 Ratio CBC 04/20/18 04/21/18 Range/Units 19:50 04:40 WBC 8.1 6.8 (4.0-11.0) th/mm3 RBC 4.30 3.94 L (4.00-5.30) mil/mm3 Hgb 12.6 11.1 L (11.6-15.3) gm/dL Hct 37.4 33.8 L (35.0-46.0) % Plt Count 221 203 (150-450) th/mm3 Neut # (Auto) 6.6 4.5 (1.8-7.7) th/mm3 Lymph # (Auto) 1.3 1.6 (1.0-4.8) th/mm3 [place] # (Auto) 0.2 0.6 (0.0-0.9) th/mm3 Eos # (Auto) 0.0 0.1 (0.0-0.4) th/mm3 Baso # (Auto) 0.0 0.0 (0.0-0.2) th/mm3 Comprehensive Metabolic Panel 04/20/18 04/21/18 Range/Units 19:50 04:40 Sodium 138 142 (136-145) meq/L Potassium 3.4 L 3.2 L (3.5-5.1) meq/L Chloride 103 108 H (98-107) meq/L Carbon Dioxide 22.7 26.8 (21.0-32.0) meq/L BUN 14 10 (7-18) mg/dL Creatinine 1.00 0.78 (0.50-1.00) mg/dL Calcium 8.4 L 7.9 L (8.5-10.1) mg/dL Intake and Output 04/20/18 04/21/18 04/21/18 22:59 06:59 14:59 Intake Total 558 / 558 442 / 442 Output Total 1150 / 1150 Balance -592 / -592 442 / 442 Intake: IV 558 / 558 442 / 442 NS Inj 1,000 ML @ 70 mls/hr IV. 558 / 558 442 / 442 CONT .[id number] [facility] Rx#: [id number] Oral 0 / 0 Output: Urine Amount (Catheter) 1150 / 1150 Indwelling Urethral Catheter 1150 / 1150 Other: Date of Last Bowel Movement 04/21/18 04/20/18 Weight 80.9 kg 76.7 kg Weight On Admission 76.7 kg - Imaging and Cardiology Imaging: Impressions Chest X-Ray 04/20/18 19:55 CONCLUSION: Minimal basilar atelectasis. No effusion or pneumothorax. Cardiomegaly. Head CT 04/20/18 19:55 CONCLUSION: 1. No bleed or other acute intracranial abnormality. 2. 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 Report was called by [Dr. Reyes to Dr. Briscoe at 8:13 PM ] Head CTA 04/20/18 19:55 CONCLUSION: 1. No occlusive disease demonstrated. 2. Bilateral relatively large thyroid nodules. Report was called by [ ] Neck CTA 04/20/18 19:55 CONCLUSION: No significant occlusive disease within the neck. There is atherosclerosis of the carotid bifurcations; 30% or less in short segment stenosis of the proximal left internal carotid artery. Head MRI 04/21/18 07:14 . CONCLUSION: 1. Marked periventricular white matter changes with old lacunar infarct basal ganglia right side. 2. Subtle restricted diffusion posterior limb internal capsule left side that could be subacute ischemic changes. 3. There is no parenchymal hemorrhage. Assessment and Plan - Plan Elevated troponin: It appears that she came in with clinical stroke syndrome and is noted to have a subacute ischemic findings on brain MRI. She had no anginal symptoms or atypical chest pain. Slight elevation in troponin may be related to small stroke. Doubt ACS. May consider outpatient stress test. Would continue with risk factor modification and management with pharmacotherapy for secondary prevention. Antiplatelet therapy indefinitely. Will defer to neurology either aspirin 325 mg daily or aspirin 81 mg daily with Plavix 75 mg daily. Continue atorvastatin, amlodipine, home Bumex and clonidine. Hypertension: Goal SBP <130. Continue amlodipine 10 mg daily, clonidine 0.1 mg 3 times daily, Bumex 0.5 mg daily, may consider addition of atenolol 25 mg daily to reach BP goal. We will sign off for now. Call with questions.
--- NOTE | 2018-04-21 16:35 | ECHRPT ---
Indication: CVA/TIA CONCLUSIONS Normal left ventricular size. Wall thickness is normal. The left ventricular systolic function is normal with an estimated ejection fraction in the range of 55-60%. Mitral annular calcification is present. Aortic valve sclerosis is present. Mild aortic valve stenosis. Aortic valve area is 1.4 cm. Aortic valve mean gradient is 14 mmHg. There is trace tricuspid valve regurgitation. The estimated pulmonary arterial pressure is 34 mmHg. There is a trivial pericardial effusion present. BP: 150 / 69 HR: 73 Rhythm: MEASUREMENTS (Male / Female) Normal Values Technical Quality:Fair 2D ECHO LV Diastolic Diameter PLAX 4.2 cm 4.2 - 5.9 / 3.9 - 5.3 cm LV Systolic Diameter PLAX 3.0 cm IVS Diastolic Thickness 1.0 cm 0.6 - 1.0 / 0.6 - 0.9 cm LVPW Diastolic Thickness 0.9 cm 0.6 - 1.0 / 0.6 - 0.9 cm LV Relative Wall Thickness 0.4 RV Internal Dim ED PLAX 2.5 cm LVOT Diameter 2.0 cm Aortic Root Diameter 2.9 cm LA Systolic Diameter LX 3.1 cm 3.0 - 4.0 / 2.7 - 3.8 cm DOPPLER AV Peak Velocity 272.0 cm/s AV Peak Gradient 29.6 mmHg AV Mean Gradient 14.0 mmHg AV Velocity Time Integral 57.3 cm LVOT Peak Velocity 120.0 cm/s LVOT Peak Gradient 5.8 mmHg LVOT Velocity Time Integral 25.8 cm LVOT Cardiac Index 3122.4 cm/minm AV Area Cont Eq vti 1.4 cm AV Area Cont Eq pk 1.4 cm Mitral E Point Velocity 77.0 cm/s Mitral A Point Velocity 77.5 cm/s Mitral E to A Ratio 1.0 LV E' Lateral Velocity 9.1 cm/s Mitral E to LV E' Lateral Ratio 8.5 LV E' Septal Velocity 7.2 cm/s Mitral E to LV E' Septal Ratio 10.7 TR Peak Velocity 243.0 cm/s TR Peak Gradient 23.6 mmHg Right Atrial Pressure 10.0 mmHg Pulmonary Artery Systolic Pressu 33.6 mmHg Right Ventricular Systolic Press 33.6 mmHg PV Peak Velocity 148.0 cm/s PV Peak Gradient 8.8 mmHg FINDINGS LEFT VENTRICLE Normal left ventricular size. Wall thickness is normal. The left ventricular systolic function is normal with an estimated ejection fraction in the range of 55-60%. RIGHT VENTRICLE Normal right ventricular size and systolic function. LEFT ATRIUM The left atrial size is normal. RIGHT ATRIUM The right atrial size is normal. ATRIAL SEPTUM Normal atrial septal thickness without atrial level shunting by limited color doppler interrogation. AORTA The aortic root and proximal ascending aorta are normal in size on limited imaging. MITRAL VALVE Mitral annular calcification is present. AORTIC VALVE Trileaflet aortic valve. Marked aortic valve sclerosis is present. with possible mild stenosis. Aortic valve mean gradient is 14 mmHg. TRICUSPID VALVE There is trace tricuspid valve regurgitation. The estimated pulmonary arterial pressure is 34 mmHg. PULMONARY VALVE No pulmonary valve regurgitation or stenosis. VESSELS The inferior vena cava is normal in size. PERICARDIUM There is a trivial pericardial effusion present. Dariel Cross MD (Electronically Signed) Final Date:21 April 2018 16:34
--- NOTE | 2018-04-21 22:50 | MB ---
cc: Sergey Bolaños MD, PhD DATE: 04/21/2018 REASON FOR CONSULTATION: Stroke. HISTORY OF PRESENT ILLNESS: This is an 82-year-old female who presented to the emergency room yesterday as a stroke alert. She noted difficulty getting words out at 6:30 p.m. and the paramedics noted right-sided weakness with a flaccid right-sided weakness. She was brought to the ER. I evaluated the patient via the telemedicine process at which time it was evident that she had regained her strength on the right side. She was able to answer questions. She was able to repeat phrases. Because of the resolution of symptoms, she was not a candidate for TPA. CT of the brain revealed an old right frontal and left parietal stroke, but no acute change. CT angiogram of the head showed no evidence for any large vessel occlusion. CTA of the neck showed no significant carotid stenosis. She was started on aspirin 325 mg daily. She reports that she feels back to her baseline at the present time. PAST MEDICAL HISTORY: She has a history of stroke in the past, history of hypertension, hyperlipidemia, history of colon polyps. CURRENT MEDICATIONS: 1. Aspirin 325 mg daily. 2. Amlodipine 10 mg daily. 3. Atorvastatin 20 mg daily. 4. Bumex 0.5 mg daily. 5. Clonidine 0.1 mg t.i.d. 6. Tylenol p.r.n. NEUROLOGICAL EXAMINATION: VITAL SIGNS: Blood pressure is 126/55, pulse 78, respiratory rate 18, temperature 98.7. HIGH CORTICAL FUNCTION: She is alert. She is oriented to place and date. She has some mild comprehension difficulties and trouble following commands. Poor recall of recent events. Cranial nerves 2-12 are normal. Motor exam 5/5 strength of all groups in both upper and lower extremities. There is no drift. There is no Babinski sign. DIAGNOSTIC DATA: Echocardiogram, EF is 55% to 60%. There is aortic valve sclerosis, mitral annular calcification, mild aortic stenosis, trace tricuspid regurgitation, trivial pericardial effusion. As noted above, CTA of the neck reveals no significant stenosis. She did have an MRI of the brain done today, which shows subtle restricted diffusion in the posterior limb of the internal capsule on the left side. Probable subacute infarction, otherwise normal for age. LABORATORY DATA: White count 8100, hemoglobin 12.6, hematocrit 37%, platelet count 221,000. PT 10.8, INR 1.1. Sodium is 142, potassium 2.2, chloride 108, CO2 is 26, the BUN is 10, creatinine 0.78. LDL 87. Cholesterol 150. IMPRESSION: Left hemispheric transient ischemic attack with subtle stroke on the MRI. The patient resolved from the standpoint of her neurologic symptoms, was therefore not a candidate for TPA. RECOMMENDATION: Continue aspirin 325 mg daily as well as statin therapy. She does have some speech difficulties with comprehension. It is difficult to say whether this is due to subacute stroke versus mild dementia. Recommendation, could consider discharge tomorrow if the patient is stable on aspirin. Would recommend outpatient speech therapy. Follow up with me in approximately 2 weeks as an outpatient. Sergey Bolaños MD, PhD CEDRIC/gina , 09:37 PM , 09:50 PM
[2018-04-21] MEDS: Pantoprazole Inj 40 MG Vial IV.PUSH SCH (23:54)
--- NOTE | 2018-04-22 00:55 | CT ---
EXAM DATE: 04/22/2018 12:47 AM EST AGE/SEX: 82 years / Female INDICATIONS: Stroke alert. CLINICAL DATA: This is the patient's initial encounter. Patient reports that signs and symptoms have been present for 1 day and indicates a pain score of Nonresponsive. MEDICAL/SURGICAL HISTORY: Non-responsive. Non-responsive. RADIATION DOSE: 30.74 CTDI (mGy) COMPARISON: [facility]PO, CT HEAD W/O CONTRAST, 04/20/2018. [facility], MR HEAD W & W/O CONTRAST, 04/21/2018. . TECHNIQUE: CT of the head without contrast. Using automated exposure control and adjustment of the mA and/or kV according to patient size, radiation dose was kept as low as reasonably achievable to ob tain optimal diagnostic quality images. DICOM format image data is available electronically for revi ew and comparison. FINDINGS: Ventricles and cisterns are of normal size and configuration. There are no signs of acute infarct or intracranial hemorrhage. No masses are seen. Encephalomalacia from remote right frontal and left vale etal infarcts again seen. Patchy periventricular white matter disease. No fractures. CONCLUSION: 1. No acute findings. Report called to Dr. Sergey Bolaños at 12:52 AM on April 22, 2018. Electronically signed by: Randall Vargas MD 04/22/2018 12:53 AM EST
[2018-04-22] MEDS: Sod Chloride 0.9% Inj 1,000 ML IV.CONT SCH ×3 (06:41→21:05)
--- NOTE | 2018-04-22 07:45 | P.PNNEU ---
Subjective Subjective Comments: Pt had episode of increase confusion last PM and combativeness. she had no new focal weakness or other focal findings. I reviewed CT brain last PM and this was stable. She was not a candidate for TPA since the MRI brain yesterday indicated a possible area of restricted diffusion on the left hemisphere and therefore would have been a significant hemorrhagic risk for tpa. Not a candidate for IR as no clear new stroke sx, no focal deficits. THis AM is back to her baseline as she was yesterday Active Medications: Active Medications Acetaminophen (Tylenol) 650 mg PO Q4H PRN PRN Reason: Temp > 100.4 Amlodipine Besylate (Norvasc) 10 mg PO DAILY [facility] Last Admin: 04/21/18 09:51 Dose: 10 mg Aspirin (Aspirin) 325 mg PO DAILY [facility] Last Admin: 04/21/18 09:50 Dose: 325 mg Atorvastatin Calcium (Lipitor) 20 mg PO DAILY [facility] Last Admin: 04/21/18 09:50 Dose: 20 mg Bumetanide (Bumex) 0.5 mg PO DAILY [facility] Last Admin: 04/21/18 09:50 Dose: 0.5 mg Clonidine HCl (Catapres) 0.1 mg PO TID [facility] Last Admin: 04/21/18 21:11 Dose: 0.1 mg Clopidogrel Bisulfate (Plavix) 75 mg PO DAILY [facility] Sodium Chloride (Ns Inj) 1,000 mls @ 70 mls/hr IV.CONT .[id number] [facility] Last Admin: 04/22/18 06:41 Dose: Not Given Ondansetron HCl (Zofran Inj) 4 mg IV.PUSH Q6H PRN PRN Reason: NAUSEA OR VOMITING Pantoprazole Sodium (Protonix Inj) 40 mg IV.PUSH Q24H [facility] Last Admin: 04/21/18 23:54 Dose: 40 mg Senna/Docusate Sodium (Nydia-Colace) 1 tab PO BID [facility] Last Admin: 04/21/18 21:11 Dose: 1 tab Sodium Chloride (Ns Flush) 2 ml IV.FLUSH PRN PRN PRN Reason: FLUSH AFTER USING IV ACCESS Sodium Chloride (Ns Flush) 2 ml IV.FLUSH BID [facility] Last Admin: 04/21/18 21:11 Dose: 2 ml Allergies/Adverse Reactions: Allergies Allergy/AdvReac Type Severity Reaction Status Date / Time chocolate flavor Allergy Severe itching Verified 04/20/18 19:56 codeine Allergy Severe SHORT OF Verified 04/20/18 19:56 BREATH/PIMPLES gluten Allergy Severe gi upset Verified 04/20/18 19:56 metronidazole Allergy Severe gi upset Verified 04/20/18 19:56 Sulfa (Sulfonamide Allergy Severe RASH Verified 04/20/18 19:56 Antibiotics) wheat Allergy Severe CANNOT Verified 04/20/18 19:56 BREATH aspirin AdvReac Severe "MAKES ME Verified 04/20/18 19:56 SLEEPY" WITH LARGE DOSES Yeast AdvReac Severe NAUSEA/VOMI Verified 04/20/18 19:56 TING milk AdvReac Intermediate DIARRHEA Verified 04/20/18 19:56 soy AdvReac Intermediate ABDOMINAL Verified 04/20/18 19:56 CRAMPS SHARK Allergy Severe CANNOT Uncoded 12/23/07 03:08 BREATH NUTS AdvReac Intermediate DIVERTICULI Uncoded 11/14/12 03:08 TIS Physical Exam Vital signs: Vital Signs 04/21/18 07:50 04/21/18 07:54 04/21/18 08:00 Temperature 98.4 F 98.4 F Pulse Rate 80 69 Respiratory Rate 30 H 14 Blood Pressure 138/69 138/69 Pulse Oximetry 99 96 96 04/21/18 10:05 04/21/18 12:00 04/21/18 16:00 Temperature 98.6 F 98.4 F Pulse Rate 72 74 Respiratory Rate 21 18 18 Blood Pressure 150/69 H 124/69 115/59 L Pulse Oximetry 98 98 04/21/18 19:54 04/21/18 20:00 04/22/18 00:00 Temperature 98.7 F 98.1 F Pulse Rate 81 72 Respiratory Rate 18 18 Blood Pressure 126/55 L 118/57 L Pulse Oximetry 96 96 95 04/22/18 04:00 Temperature Pulse Rate 58 L Respiratory Rate 18 Blood Pressure 188/81 H Pulse Oximetry 95 Intake & Output 04/21/18 04/22/18 04/22/18 18:59 06:59 18:59 Intake Total 442 / 442 1000 / 1000 Output Total 50 / 50 Balance 392 / 392 1000 / 1000 Weight 74.8 kg Intake: IV 442 / 442 1000 / 1000 NS Inj 1,000 ML @ 70 mls/hr IV. 442 / 442 1000 / 1000 CONT .[id number] [facility] Rx#: [id number] Output: Urine 50 / 50 Other: # Voids 1 5 # Urine Diapers 2 Date of Last Bowel Movement 04/20/18 04/20/18 - Routine Neurological Exam alert, difficult to do mental status exam as she has comprehension deficits as she did on my exam yesterday. She has trouble following simple commands. No neglect. Her speech is fluent but she makes some paraphasic errors, She is not able to name simple things. CN intact MOTOR 5/5 BUe - Urinary Catheter Management Indwelling Urethral Catheter Cath placed during this visit: yes, but has since been removed by the nurse Reason for continuing: Hourly intake/output Insertion date: 04/20/18 Insertion time: 20:54 Removal date: 04/21/18 Removal time: 17:15 Objective Laboratory Results - last 24 hr 04/21/18 04/21/18 04/22/18 04:40 08:37 00:12 POC Glucose 106 98 Triglycerides 61 Cholesterol 152 LDL Cholesterol, Calc 87 HDL Cholesterol 53.1 Cholesterol/HDL Ratio 2.86 Review/Management - Review/Management Plan: Episode last PM of uncertain etiology. Possible TIA, possible "ing". She is at her baseline this am as I saw her yesterday with a Wernicke type aphasia. Recommend--repeat MRI and MRA brain today. In the event that this may have been an additional TIA last PM, will add plavix to aspirin.
--- NOTE | 2018-04-22 13:55 | P.PN ---
Subjective Interval history: became combative last night per report. per nursing her speech was garbled, she was laughing and clapping her hands, initially would not move lower extremities until but difficult to tell if because she was not being cooperative as she subsequently did. I was told she was seeing her . Stroke alert was called. Ct was negative for any acute process. She spent the rest of the night combative and uncooperative, yelling if blood pressure cuff was placed on her. Since this morning she has refused to take her medications or allow her blood pressure or any treatment be given to her. Physical Exam Vital signs: Vital Signs 04/21/18 16:00 04/21/18 19:54 04/21/18 20:00 Temperature 98.4 F 98.7 F Pulse Rate 74 81 Respiratory Rate 18 18 Blood Pressure 115/59 L 126/55 L Pulse Oximetry 96 96 04/22/18 00:00 04/22/18 04:00 04/22/18 08:00 Temperature 98.1 F Pulse Rate 72 58 L 88 Respiratory Rate 18 18 Blood Pressure 118/57 L 188/81 H Pulse Oximetry 95 95 96 04/22/18 08:08 04/22/18 08:18 Temperature 98 F Pulse Rate 62 Respiratory Rate 22 Blood Pressure 142/61 H Pulse Oximetry 98 95 Intake & Output 04/21/18 04/22/18 04/22/18 18:59 06:59 18:59 Intake Total 442 / 442 1000 / 1000 Output Total 50 / 50 Balance 392 / 392 1000 / 1000 Weight 74.8 kg Intake: IV 442 / 442 1000 / 1000 NS Inj 1,000 ML @ 70 mls/hr IV. 442 / 442 1000 / 1000 CONT .[id number] [facility] Rx#: [id number] Output: Urine 50 / 50 Other: # Voids 1 5 # Urine Diapers 2 Date of Last Bowel Movement 04/20/18 04/20/18 04/20/18 Narrative: patient refused to let me perform a physical exam - Constitutional no acute distress - Routine HEENT Exam Head: Present: normocephalic - Routine Neurological Exam Present: alert, moving all extremities - Routine Psychiatric Exam Comments: speech is clear but simple - Urinary Catheter Management Indwelling Urethral Catheter Cath placed during this visit: yes, but has since been removed by the nurse Reason for continuing: Hourly intake/output Insertion date: 04/20/18 Insertion time: 20:54 Removal date: 04/21/18 Removal time: 17:15 Results - Labs CBC & Chem 7: 04/21/18 04:40 04/21/18 04:40 Laboratory Results - last 24 hr 04/22/18 00:12 POC Glucose 98 - Imaging Impressions Head CT 04/22/18 00:32 CONCLUSION: 1. No acute findings. Report called to Dr. Sergey Bolaños at 12:52 AM on April 22, 2018. Assessment and Plan - Assessment (1) CVA (cerebral vascular accident) Code(s): I63.9 - Cerebral infarction, unspecified Status: Acute (2) TIA (transient ischemic attack) Code(s): G45.9 - Transient cerebral ischemic attack, unspecified Status: Acute Plan: resolution of facial defecit and weakness reported by paramedics by the time she reached the hospital, epsiode of confusion and agitation last pm with neg ct , she is refusing further imaging studies today. Seen by neurology who has started her on plavix in addition to her aspirin (3) Hypertension Code(s): I10 - Essential (primary) hypertension Status: Acute Plan: Continue home blood pressure medicines amlodipine and clonidine, unfortunately she is refusing bp medication and blood pressure cuff readings at this point (4) Elevated troponin Code(s): R74.8 - Abnormal levels of other serum enzymes Status: Acute Plan: seen by cardiology who recommended possible outpatient stress test, continue cardiac risk modification (3) Hypertension Qualifiers: Hypertension type: essential hypertension Qualified Code(s): I10 - Essential (primary) hypertension
--- NOTE | 2018-04-22 17:37 | ECG ---
Date Performed: 04/21/2018 Time Performed: 05:58:16 PTAGE: 82 years EKG: Sinus rhythm NORMAL ECG PREVIOUS TRACING : 04/20/2018 20.44 DOCTOR: Belkys Frias Interpretating Date/Time 04/22/2018 17:27:19
--- NOTE | 2018-04-22 17:44 | ECG ---
Date Performed: 04/20/2018 Time Performed: 20:44:05 PTAGE: 82 years EKG: SINUS TACHYCARDIA WITH FREQUENT VENTRICULAR PREMATURE COMPLEXES NONSPECIFIC ST & T-WAVE ABN ORMALITY ABNORMAL RHYTHM ECG PREVIOUS TRACING : 11/29/2012 05.39 DOCTOR: Belkys Frias Interpretating Date/Time 04/22/2018 17:30:47
[2018-04-22] MEDS: Aspirin 325 MG Tablet PO SCH (19:42)
[2018-04-22] MEDS: amLODIPine 10 MG Tablet PO SCH (19:43)
[2018-04-22] MEDS: Senna/Docusate Sodium 8.6/50 MG Tablet PO SCH ×2 (19:43→21:32)
[2018-04-22] MEDS: Potassium Chlor 20 mEq Premix 20 MEQ/100 ML PIGGYBACK IV.SIG SCH (21:05)
[2018-04-22] MEDS: Pantoprazole Inj 40 MG Vial IV.PUSH SCH (23:45)
[2018-04-23] MEDS: Potassium Chlor 20 mEq Premix 20 MEQ/100 ML PIGGYBACK IV.SIG SCH (01:40)
[2018-04-23 06:02] LABS: Potassium 3.5 meq/L (3.5-5.1)
[2018-04-23 06:06] LABS: Calcium 8.2 mg/dL (8.5-10.1)
[2018-04-23 06:07] LABS: Carbon Dioxide 23.3 meq/L (21.0-32.0)
[2018-04-23] MEDS: Sod Chloride 0.9% Inj 1,000 ML IV.CONT SCH ×2 (06:20→21:58)
[2018-04-23] MEDS: Aspirin 325 MG Tablet PO SCH (09:21)
[2018-04-23] MEDS: amLODIPine 10 MG Tablet PO SCH (09:23)
[2018-04-23] MEDS: Senna/Docusate Sodium 8.6/50 MG Tablet PO SCH ×2 (09:24→22:10)
--- NOTE | 2018-04-23 16:13 | P.PN ---
Subjective Interval history: Per nursing report has been alternating between being calm and agitated at times acting childlike, still refusing to take her medications, states she is not sure the medication she is being given is one she can take , will take her own medicines from home. states she was difficult yesterday because they were strangers trying to take her blood pressure and give her medications. States she has had 3 episodes like this Physical Exam Vital signs: Vital Signs 04/22/18 16:10 04/22/18 16:15 04/22/18 16:30 Temperature Pulse Rate 54 L 52 L 50 L Respiratory Rate 26 H 21 26 H Blood Pressure 106/57 L 111/44 L 129/47 L Pulse Oximetry 99 04/22/18 16:45 04/22/18 17:00 04/22/18 19:50 Temperature Pulse Rate 50 L 52 L Respiratory Rate 28 H 25 H Blood Pressure 125/44 L 121/49 L Pulse Oximetry 99 98 95 04/22/18 20:00 04/22/18 23:43 04/23/18 04:00 Temperature 99.4 F 98.4 F Pulse Rate 92 H Respiratory Rate 19 20 20 Blood Pressure 188/85 H 150/65 H 205/78 H Pulse Oximetry 100 100 04/23/18 07:48 04/23/18 08:24 Temperature Pulse Rate Respiratory Rate Blood Pressure 150/72 H Pulse Oximetry 94 L Intake & Output 04/22/18 04/23/18 04/23/18 18:59 06:59 18:59 Intake Total 200 / 200 500 / 500 Balance 200 / 200 500 / 500 Weight 74.8 kg Intake: IV 200 / 200 500 / 500 NS Inj 1,000 ML @ 70 mls/hr IV. 500 / 500 CONT .[id number] [facility] Rx#: [id number] KCl 20 mEq Premix Inj 20 meq In 200 / 200 100 ml @ 50 mls/hr IV.SIG Q2H [facility] Rx#:[id number] Oral 0 / 0 Other: # Voids 5 # Incontinent Voids 3 # Urine Diapers 2 Date of Last Bowel Movement 04/20/18 04/20/18 - Constitutional no acute distress, cooperative Comments: calm, pleasant - Routine HEENT Exam Head: Present: normocephalic - Routine Respiratory Exam Present: CTA bilaterally - Routine Cardiovascular Exam Present: RRR, murmur (rakan ) Comments: rakan 3/6 - Routine Abdominal Exam Present: soft, normoactive bowel sounds - Routine Skin Exam Present: ecchymosis - Routine Neurological Exam Present: alert, oriented X3 - Routine Psychiatric Exam Present: normal affect - Urinary Catheter Management Indwelling Urethral Catheter Cath placed during this visit: yes, but has since been removed by the nurse Reason for continuing: Hourly intake/output Insertion date: 04/20/18 Insertion time: 20:54 Removal date: 04/21/18 Removal time: 17:15 Results - Labs CBC & Chem 7: 04/21/18 04:40 04/23/18 05:39 Laboratory Results - last 24 hr 04/23/18 05:39 Sodium 142 Potassium 3.5 Chloride 109 H Carbon Dioxide 23.3 Anion Gap 10 BUN 10 Creatinine 0.66 Estimated GFR 85 L Random Glucose 97 Calcium 8.2 L Magnesium 2.0 Assessment and Plan - Assessment (1) CVA (cerebral vascular accident) Code(s): I63.9 - Cerebral infarction, unspecified Status: Acute (2) TIA (transient ischemic attack) Code(s): G45.9 - Transient cerebral ischemic attack, unspecified Status: Acute Plan: resolution of facial deficit and weakness reported by paramedics by the time she reached the hospital, epsiode of confusion and agitation last pm with neg ct , she is refusing further imaging studies today. Seen by neurology who has started her on plavix in addition to her aspirin she has refused any oral medications and her behavior has alteranated between calm and agressive and even at times childlike. Her aggressiveness and refusal to take her medications as well what has appeared to be fluctuations in personality prompted the initiation of a backer act for her safety. Neurology as yet to see her again today and we are waiting for a psychiatric consultation that was placed yesterday. Today she is much calmer and is agreeable to the MRI that was ordered (3) Hypertension Code(s): I10 - Essential (primary) hypertension Status: Acute Plan: Continue home blood pressure medicines amlodipine and clonidine, unfortunately she is refusing bp medication and blood pressure cuff readings at this point, have been able to check sporadically and cover with IV vasotec (4) Elevated troponin Code(s): R74.8 - Abnormal levels of other serum enzymes Status: Acute Plan: seen by cardiology who recommended possible outpatient stress test, continue cardiac risk modification (3) Hypertension Qualifiers: Hypertension type: essential hypertension Qualified Code(s): I10 - Essential (primary) hypertension
--- NOTE | 2018-04-23 17:39 | MR ---
EXAM DATE: 04/23/2018 5:28 PM EST AGE/SEX: 82 years / Female INDICATIONS: Aphasia. Right facial droop. CLINICAL DATA: This is the patient's initial encounter. Patient reports that signs and symptoms have been present for 3 days and indicates a pain score of 2/10. MEDICAL/SURGICAL HISTORY: Hypercholesterolemia. Hypertension. Cerebrovascular disease. GERD Cholecystectomy. Rt knee replacement. COMPARISON: [facility], MR HEAD W/O CONTRAST, 04/23/2018. . TECHNIQUE: 3D [id number] MRA was performed. Source images, multiplanar STS MIP, and 3D volum e MIP reconstructions were reviewed. FINDINGS: There is excellent visualization of the major intracranial arteries out to the second-order branch ve ssels. There is no evidence for aneurysm, vessel truncation or stenosis, and no evidence for vascula r malformation. The left posterior cerebral artery arises from the left internal carotid artery which is a normal variant. CONCLUSION: Negative MRA of the intracranial circulation. Electronically signed by: Micheal Mcrae MD 04/23/2018 5:38 PM EST
--- NOTE | 2018-04-23 17:45 | MR ---
EXAM DATE: 04/23/2018 5:30 PM EST AGE/SEX: 82 years / Female INDICATIONS: Aphasia. Right facial droop. CLINICAL DATA: This is the patient's initial encounter. Patient reports that signs and symptoms have been present for 3 days and indicates a pain score of 2/10. MEDICAL/SURGICAL HISTORY: Hypercholesterolemia. Hypertension. Cerebrovascular disease. GERD Cholecystectomy. Right knee replacement. COMPARISON: [facility], MRA HEAD W/O CONTRAST, 04/23/2018. [facility], CT HEAD W/O CONTRAST, 04/22/2018. . TECHNIQUE: Multiplanar, multisequence examination of the brain was performed without contrast. FINDINGS: Cerebrum: The ventricles are normal for age. There is focal encephalomalacia at the posterior infer ior left parietal lobe. There also appears to be a small area of encephalomalacia at the right steeping press operator al capsule region. No evidence of midline shift, mass lesion, hemorrhage or acute infarction. No ext raaxial fluid collections are seen. The pituitary gland and suprasellar cistern are normal in config uration. There is hypertrophy of the inner table the frontal bone which is a common finding in elderl y females. White Matter: There is increased signal seen in the cerebral white matter. Posterior Fossa: The cerebellum and brainstem are intact. The 4th ventricle is midline. The cerebel lopontine angle is unremarkable. The cerebellar tonsils are normal in position. Diffusion Imaging: No focal areas of restricted diffusion are seen. No evidence of acute infarction . Extracranial: The visualized portions of the orbits and paranasal sinuses are unremarkable. CONCLUSION: 1. No acute abnormality is seen. 2. Increased signal within the cerebral white matter likely from small vessel ischemic change. 3. Areas of encephalomalacia at the left parietal and right external capsule regions. Electronically signed by: Micheal Mcrae MD 04/23/2018 5:44 PM EST
--- NOTE | 2018-04-23 20:29 | P.CONPSY ---
Provisional Diagnosis Admission Date: April 20, 2018 23:18 [place] I.: Delirium due to known physiological condition [place] III.: Transient Ischemic attack History of Present Illness Service: Psychiatry Consult date: 04/23/18 Requesting Physician: Juliana Saunders Reason for Consult: hallucinations Primary Care Provider: UNKNOWN Chief Complaint: "Nikky been confused. From what they tell me, I owe apologies for hitting" History of Present Illness: Pt is an 82 YOWF with a hx of a past CVA, who was admitted to hospitalist service for TIA. Psychiatry was consulted by primary team after pt began to experience altered mental status (hallucinations, paranoia, confusion and bizarre behavior) on Tuesday. RN reports that pt was very suspicious of staff and refused all medications and was combative with care. Spoke to Dr. Daniels who placed pt under a BA due to pt wanting to leave AMA and concerns about lack of capacity. RN reports that since 4pm pt has been lucid and cooperative with care. She was able to visit with her appropriately today. Pt reports that she awoke at home in severe discomfort and tried to get out of her bed and fell. She reports that she felt confused and "out of it" and doesn't remember anything else except waking up in the hospital. She reports that her memory is fuzzy of hospital events but she recalls feeling like she was in a "dream" and strangers were surrounding her. She states that she had a difficult morning, but since this afternoon, she has been feeling like herself. "I know where I am now. I'm at [place] in the hospital and these are nurses who are trying to take care of me." She reports feeling relieved and states that she will take her medications. She jokes and states that she was taught not to take pills from strangers but staff aren't "strangers" anymore, in an appropriate manner. Pt reports that she was given lorazepam 0.5mg for her nerves by PCP (Ara) in January. She states that at the time she was having a lot of stress related to her relationship with her daughter (gives hx of long standing relationship difficulties), but decided not to take it. EForce was done which corroborates pt's report. She denies alcohol use, stating that she is not allowed to drink due to her medical problems ("it will interfere with my medications and can make my blood pressure rise") and because of her alevism beliefs as a [employer]. She denies any hx of any previous psychiatric hospitalizations or previous psychotic episodes or camryn. She reports that she is feeling much better and feels "settled now". She reports main source of stress is her who is on hospice service and strained relationship with her daughter. No SI/HI. Past Psych Hx: sertraline for anxiety. No hx of hospitalizations. No hx of camryn or psychosis. Family Psych hx: none PMFSH - History History Provided By: Patient - Medical History Medical History: Medical History (Last Reviewed 04/23/18 @ 20:54 by Chantell Wright MD) History of stroke Edema History of colon polyps Hypertension Reflux gastritis - Social History I have reviewed the patient's Social History: Yes - Tobacco History Second Hand Smoke Exposure: No Tobacco Use In Past 30 Days: No Smoking Status: Never smoker - Alcohol History How Often Do You Have a Drink Containing Alcohol: Never - Substance Use History Substance History: No History of Abuse - Travel History Recent Travel in the [facility] Within the Last 8 Weeks: No Recent Travel Out of the Country Within the Last 8 Weeks: No - Immunization History Tetanus Immunization: Unsure Hx Influenza Vaccine This Season: Yes Medications and Allergies Active Medications: Active Medications Acetaminophen (Tylenol) 650 mg PO Q4H PRN PRN Reason: Temp > 100.4 Amlodipine Besylate (Norvasc) 10 mg PO DAILY [facility] Last Admin: 04/23/18 09:23 Dose: Not Given Aspirin (Aspirin) 325 mg PO DAILY [facility] Last Admin: 04/23/18 09:21 Dose: Not Given Atorvastatin Calcium (Lipitor) 20 mg PO DAILY [facility] Last Admin: 04/23/18 09:23 Dose: Not Given Bumetanide (Bumex) 0.5 mg PO DAILY [facility] Last Admin: 04/23/18 09:22 Dose: Not Given Clonidine HCl (Catapres) 0.1 mg PO TID [facility] Last Admin: 04/23/18 19:25 Dose: Not Given Clopidogrel Bisulfate (Plavix) 75 mg PO DAILY [facility] Last Admin: 04/23/18 09:24 Dose: Not Given Enalaprilat (Vasotec Inj) 1.25 mg IV.PUSH Q6H PRN PRN Reason: SYS BP GREATER THAN 160 [facility] Last Admin: 04/23/18 04:15 Dose: 1.25 mg Sodium Chloride (Ns Inj) 1,000 mls @ 70 mls/hr IV.CONT .[id number] [facility] Last Infusion: 04/23/18 19:25 Dose: Infused Lorazepam (Ativan Inj) 0.5 mg IV.PUSH Q6H PRN PRN Reason: AGITATION Ondansetron HCl (Zofran Inj) 4 mg IV.PUSH Q6H PRN PRN Reason: NAUSEA OR VOMITING Pantoprazole Sodium (Protonix Inj) 40 mg IV.PUSH Q24H [facility] Last Admin: 04/22/18 23:45 Dose: 40 mg Senna/Docusate Sodium (Nydia-Colace) 1 tab PO BID [facility] Last Admin: 04/23/18 09:24 Dose: Not Given Sodium Chloride (Ns Flush) 2 ml IV.FLUSH PRN PRN PRN Reason: FLUSH AFTER USING IV ACCESS Sodium Chloride (Ns Flush) 2 ml IV.FLUSH BID [facility] Last Admin: 04/23/18 09:23 Dose: Not Given Allergies Allergy/AdvReac Type Severity Reaction Status Date / Time chocolate flavor Allergy Severe itching Verified 04/20/18 19:56 codeine Allergy Severe SHORT OF Verified 04/20/18 19:56 BREATH/PIMPLES gluten Allergy Severe gi upset Verified 04/20/18 19:56 metronidazole Allergy Severe gi upset Verified 04/20/18 19:56 Sulfa (Sulfonamide Allergy Severe RASH Verified 04/20/18 19:56 Antibiotics) wheat Allergy Severe CANNOT Verified 04/20/18 19:56 BREATH aspirin AdvReac Severe "MAKES ME Verified 04/20/18 19:56 SLEEPY" WITH LARGE DOSES Yeast AdvReac Severe NAUSEA/VOMI Verified 04/20/18 19:56 TING milk AdvReac Intermediate DIARRHEA Verified 04/20/18 19:56 soy AdvReac Intermediate ABDOMINAL Verified 04/20/18 19:56 CRAMPS SHARK Allergy Severe CANNOT Uncoded 12/23/07 03:08 BREATH NUTS AdvReac Intermediate DIVERTICULI Uncoded 11/14/12 03:08 TIS Home Medications Medication Instructions Recorded Confirmed Type amlodipine 10 mg PO DAILY 04/20/18 04/20/18 History aspirin [Aspirin Low Dose] 81 mg PO DIRECTED 04/20/18 04/20/18 History atorvastatin 20 mg PO DAILY 04/20/18 04/20/18 History bumetanide 0.5 mg PO DAILY 04/20/18 04/20/18 History clonidine HCl 0.1 mg PO TID 04/20/18 04/20/18 History Exam Vital signs: Vital Signs 04/22/18 23:43 04/23/18 04:00 04/23/18 07:48 Temperature 98.4 F Pulse Rate 92 H Respiratory Rate 20 20 Blood Pressure 150/65 H 205/78 H Pulse Oximetry 100 94 L 04/23/18 08:24 Temperature Pulse Rate Respiratory Rate Blood Pressure 150/72 H Pulse Oximetry Intake & Output 04/23/18 04/23/18 04/24/18 06:59 18:59 06:59 Intake Total 200 / 200 500 / 500 500 / 500 Balance 200 / 200 500 / 500 500 / 500 Weight 74.8 kg Intake: IV 200 / 200 500 / 500 500 / 500 NS Inj 1,000 ML @ 70 mls/hr IV. 500 / 500 500 / 500 CONT .[id number] [facility] Rx#: [id number] KCl 20 mEq Premix Inj 20 meq In 200 / 200 100 ml @ 50 mls/hr IV.SIG Q2H [facility] Rx#:[id number] Oral 0 / 0 Other: # Incontinent Voids 3 Date of Last Bowel Movement 04/20/18 Mental Status Examination Appearance: Appropriate (in hospital gown) Consciousness: Alert Orientation: x4 Motor Activity: Other (lying in hospital bed) Speech: Unremarkable Language: Adequate Fund of Knowledge: Adequate Attention and Concentration: Adequate Memory: Unremarkable Mood: Appropriate, Good Affect: Appropriate, Euthymic Thought Process & Associations: Logical, Linear Thought Content: Appropriate Hallucination Type: None Delusion Type: None Suicidal Ideation: No Suicidal Plan: No Suicidal Intention: No Homicidal Ideation: No Homicidal Plan: No Homicidal Intention: No Insight: Adequate Judgment: Adequate Assessment and Plan - Assessment (1) Delirium due to known physiological condition Code(s): F05 - Delirium due to known physiological condition Status: Acute (2) TIA (transient ischemic attack) Code(s): G45.9 - Transient cerebral ischemic attack, unspecified Status: Acute - Plan Plan: Estimated LOS: [] days Presentation seems most consistent with delirium or transient cognitive impairment due to recent TIA and not acute psychiatric disorder. Pt appears to be clearing. Currently under a BA. BA clock does not start until pt is medically cleared. Discussed case with Dr. Daniels. Psych service will follow. Justification for Continued Inpatient Stay: delirium
[2018-04-24] MEDS: Pantoprazole Inj 40 MG Vial IV.PUSH SCH (00:05)
[2018-04-24] MEDS: Aspirin 325 MG Tablet PO SCH (08:42)
[2018-04-24] MEDS: amLODIPine 10 MG Tablet PO SCH (08:44)
[2018-04-24] MEDS: Senna/Docusate Sodium 8.6/50 MG Tablet PO SCH ×2 (08:44→20:48)
[2018-04-24] MEDS: Sod Chloride 0.9% Inj 1,000 ML IV.CONT SCH (11:03)
--- NOTE | 2018-04-24 11:27 | P.PN ---
Subjective Interval history: Seen by psychiatry yesterday afternoon, felt behavior was due to delirium, has been cooperative since yesterday afternoon Physical Exam Vital signs: Vital Signs 04/23/18 19:16 04/23/18 20:00 04/24/18 00:00 Temperature 98.8 F 99.1 F Pulse Rate 92 H 84 Respiratory Rate 18 18 Blood Pressure 172/86 H 177/66 H Pulse Oximetry 95 96 04/24/18 04:00 04/24/18 08:00 Temperature 99.1 F 98.6 F Pulse Rate 88 76 Respiratory Rate 17 Blood Pressure 153/78 H 203/79 H Pulse Oximetry 94 L Intake & Output 04/23/18 04/24/18 04/24/18 18:59 06:59 18:59 Intake Total 500 / 500 500 / 500 Output Total 50 / 50 700 / 700 Balance 450 / 450 -200 / -200 Weight 73.4 kg Intake: IV 500 / 500 500 / 500 NS Inj 1,000 ML @ 70 mls/hr IV. 500 / 500 500 / 500 CONT .[id number] [facility] Rx#: [id number] Output: Urine 50 / 50 700 / 700 Other: Date of Last Bowel Movement 04/20/18 04/20/18 - Constitutional no acute distress, cooperative - Routine HEENT Exam Head: Present: normocephalic Eye: Present: EOMI - Routine Neck Exam Present: supple - Routine Respiratory Exam Present: CTA bilaterally - Routine Cardiovascular Exam Present: RRR - Routine Abdominal Exam Present: soft, normoactive bowel sounds - Routine Extremities Exam Present: full ROM - Routine Skin Exam Present: ecchymosis - Routine Neurological Exam Present: alert, oriented X3 - Routine Psychiatric Exam Present: normal affect, normal thought process - Urinary Catheter Management Indwelling Urethral Catheter Cath placed during this visit: yes, but has since been removed by the nurse Reason for continuing: Hourly intake/output Insertion date: 04/20/18 Insertion time: 20:54 Removal date: 04/21/18 Removal time: 17:15 Results - Labs CBC & Chem 7: 04/21/18 04:40 04/23/18 05:39 - Imaging Impressions Head MRI 04/23/18 00:00 CONCLUSION: 1. No acute abnormality is seen. 2. Increased signal within the cerebral white matter likely from small vessel ischemic change. 3. Areas of encephalomalacia at the left parietal and right external capsule regions. Head MRA 04/23/18 00:00 CONCLUSION: Negative MRA of the intracranial circulation. Assessment and Plan - Assessment (1) CVA (cerebral vascular accident) Code(s): I63.9 - Cerebral infarction, unspecified Status: Acute Plan: We will get physical therapy to evaluate patient will continue aspirin MRI of the brain , ischemic subacute changes posterior limb,2D echo of the heart ordered CT scans and CTA scans are unremarkable. (2) TIA (transient ischemic attack) Code(s): G45.9 - Transient cerebral ischemic attack, unspecified Status: Acute Plan: mri done yesterday shows no acute changes, on plavix and asa, behavior changes due to delirium as assessed by psychiatry (3) Hypertension Code(s): I10 - Essential (primary) hypertension Status: Acute Plan: is allowing blood pressure checks today, blood pressure elevated, oral home medications resumed should be able to discharge later today or lily once bp controlled (4) Elevated troponin Code(s): R74.8 - Abnormal levels of other serum enzymes Status: Acute Plan: seen by cardiology who recommended possible outpatient stress test, continue cardiac risk modification (3) Hypertension Qualifiers: Hypertension type: essential hypertension Qualified Code(s): I10 - Essential (primary) hypertension
--- NOTE | 2018-04-24 15:07 | P.PNPSY ---
Subjective Remarks: The patient was seen today for psychiatric reevaluation. Case discussed with nursing charge. Documentation from initial psychiatric assessment reviewed. On my psychiatric evaluation the patient is found calm, cooperative, pleasant. The patient reports that she feels much better, denies pain, denies distress, denies anxiety, and she is ready to be discharged back home. The patient is fully oriented x3, able to sustain a logical, linear conversation. There is no attention deficit, there is no fluctuation of consciousness, the patient is able to repeat 3 words, recall 2 of them 3 minutes later. She denies suicidal and homicidal ideation, denies visual and auditory hallucinations at this moment. Mental Status Examination Appearance: Appropriate (in hospital gown) Consciousness: Alert Orientation: x4 Motor Activity: Other (lying in hospital bed) Speech: Unremarkable Language: Adequate Fund of Knowledge: Adequate Attention and Concentration: Adequate Memory: Unremarkable Mood: Appropriate, Good Affect: Appropriate, Euthymic Thought Process & Associations: Logical, Linear Thought Content: Appropriate Hallucination Type: None Delusion Type: None Suicidal Ideation: No Suicidal Plan: No Suicidal Intention: No Homicidal Ideation: No Homicidal Plan: No Homicidal Intention: No Insight: Adequate Judgment: Adequate Assessment and Plan - Assessment (1) Delirium due to known physiological condition Code(s): F05 - Delirium due to known physiological condition Status: Acute (2) TIA (transient ischemic attack) Code(s): G45.9 - Transient cerebral ischemic attack, unspecified Status: Acute - Plan Plan: At the moment of the psychiatric evaluation the patient does not present any neuropsychiatric symptoms or require immediate psychiatric intervention. Patient is calm, cooperative, denies depression, denies anxiety, denies camryn and psychosis. Fully oriented x3. No signs of delirium present. She does not meet criteria for involuntary psychiatric admission. Monterroso act is lifted Justification for Continued Inpatient Stay: Monterroso act lifted.
[2018-04-25 08:47] VITALS: O2SAT 96
[2018-04-25] MEDS: Senna/Docusate Sodium 8.6/50 MG Tablet PO SCH (09:22)
[2018-04-25] MEDS: Aspirin 325 MG Tablet PO SCH (09:22)
[2018-04-25] MEDS: amLODIPine 10 MG Tablet PO SCH (09:23)
--- NOTE | 2018-04-25 10:45 | P.PN ---
Subjective Interval history: has done well over the last 24 hours, no further episodes of confusion or agitation, has taken blood pressure meds and after much reassurance has taken plavix Physical Exam Vital signs: Vital Signs 04/24/18 12:00 04/24/18 16:00 04/24/18 20:00 Temperature 98 F 97.3 F L 98.4 F Pulse Rate 69 68 61 Respiratory Rate 22 Blood Pressure 139/59 L 114/49 L 119/52 L Pulse Oximetry 95 94 L 96 04/25/18 00:00 04/25/18 02:15 04/25/18 04:00 Temperature 98.2 F 98.4 F Pulse Rate 66 71 65 Respiratory Rate 18 18 Blood Pressure 142/65 H 141/65 H Pulse Oximetry 96 91 L 04/25/18 08:00 04/25/18 10:33 Temperature 97.5 F L Pulse Rate 79 Respiratory Rate 17 Blood Pressure 188/88 H Pulse Oximetry 96 96 Intake & Output 04/24/18 04/25/18 04/25/18 18:59 06:59 18:59 Intake Total 0 / 0 Output Total 0 / 0 Balance 0 / 0 Weight 79.4 kg Intake: Oral 0 / 0 Output: Urine 0 / 0 Other: Date of Last Bowel Movement 04/20/18 04/20/18 04/25/18 - Constitutional no acute distress - Routine HEENT Exam Head: Present: normocephalic Eye: Present: EOMI - Routine Neck Exam Present: supple - Routine Respiratory Exam Present: CTA bilaterally - Routine Cardiovascular Exam Present: RRR, murmur (2/6 ) - Routine Abdominal Exam Present: soft, normoactive bowel sounds - Routine Skin Exam Present: ecchymosis - Routine Neurological Exam Present: alert, oriented X3, normal speech - Routine Psychiatric Exam Present: normal affect, normal thought process, cooperative, good insight, good judgment - Urinary Catheter Management Indwelling Urethral Catheter Cath placed during this visit: yes, but has since been removed by the nurse Reason for continuing: Hourly intake/output Insertion date: 04/20/18 Insertion time: 20:54 Removal date: 04/21/18 Removal time: 17:15 Results - Labs CBC & Chem 7: 04/21/18 04:40 04/23/18 05:39 Assessment and Plan - Assessment (1) TIA (transient ischemic attack) Code(s): G45.9 - Transient cerebral ischemic attack, unspecified Status: Acute Plan: mri done yesterday shows no acute changes, on plavix and asa, behavior changes due to delirium as assessed by psychiatry, currently appears to have full recovery, will continue plavix as recommended by neurology (2) Hypertension Code(s): I10 - Essential (primary) hypertension Status: Acute Plan: blood pressure improved yesterday (3) Elevated troponin Code(s): R74.8 - Abnormal levels of other serum enzymes Status: Acute Plan: seen by cardiology who recommended possible outpatient stress test, continue cardiac risk modification (2) Hypertension Qualifiers: Hypertension type: essential hypertension Qualified Code(s): I10 - Essential (primary) hypertension
--- NOTE | 2018-04-25 10:58 | P.DCO ---
- Diagnosis (1) Hypertension Status: Acute (2) TIA (transient ischemic attack) Status: Resolved - Physical Therapy Order: Evaluate and treat, Improve ambulation, Strength and gait training - Case Management Consult Case Management Consult-Home Health: Yes - Certification I have seen patient Sierra Mckeon on 04/25/18. My clinical findings support the need for the requested home health care services because: Deconditioned with increased weakness I certify that my clinical findings support that this patient is homebound because: Unsteady gait/balance (1) Hypertension Qualifiers: Hypertension type: essential hypertension Qualified Code(s): I10 - Essential (primary) hypertension
[2018-04-25 13:07] VITALS: BP 139/86; PULSE 94; RESP 20; TEMP 97.8
== END 2018-04-25 13:28 | disposition home health service (06) ==
LOC: PHED 19:49 → PHEDA 19:49 → PHICU 04-21 00:45 → PH3 04-25 00:07
PROVIDERS: ADMIT Internal Medicine; ATTEND Internal Medicine